=== PATIENT | female | born 1935 | race Caucasian/White ===

== ENCOUNTER 2017-03-01 12:05 | Observation (INO) | payer MEDICARE ==
[2017-03-01] MEDS ORDERED: SODIUM CHLORIDE 0.9% 1,000 ML IV SCH (14:15)
[2017-03-01 15:33] LABS: Basophils % (A) 2 %; CH 31.5; CHCM 32.4; Eosinophils % (A) 2 %; HCT 45.8 % (34.0-46.0); HDW 2.15; Luc % (Auto) 4; Lymphocytes % (A) 28 %; MCH 32.1 pg (25.0-35.0); MCHC 32.7 g/dL (31.0-37.0); Mean Platelet Volume 6.4; Monocytes % (A) 6 %; Neutrophils # (A) 4.2 k/uL (1.3-7.7); Neutrophils % (A) 58 %; RBC 4.67 m/uL (3.80-5.40); RDW 14.6 % (11.5-15.5); WBC 7.1 k/uL (3.8-10.6); WBC (Perox) 7.03
[2017-03-01 15:34] LABS: Basophils # (A) 0.1 k/uL (0-0.2); Eosinophils # (A) 0.2 k/uL (0-0.7); Luc # (Auto) 0.28; Monocytes # (A) 0.4 k/uL (0-1.0)
[2017-03-01 15:46] LABS: Calcium 9.7 mg/dL (8.4-10.2); Potassium 3.4 mmol/L (3.5-5.1); Total Bilirubin 0.9 mg/dL (0.2-1.3); Total Protein 7.4 g/dL (6.3-8.2)
[2017-03-01] MEDS ORDERED: POTASSIUM CHLORIDE ER 10 MEQ TAB.ER.PRT PO STA (17:12)
[2017-03-01] MEDS: FAMOTIDINE 20 MG TAB PO SCH (19:46)
--- NOTE | 2017-03-01 21:27 | CONS ---
DATE OF CONSULTATION: Mrs. Santana is an 81-year-old female with known history of chronic tobacco use, history of hypertension, who presented with a few weeks of not feeling well. She is feeling unsteady with some dizziness. She denies any palpitation. She was noted to be bradycardic at Dr. Arce's office and was sent to the hospital. She denies any change in her breathing. She denies any chest pain or palpitation. No syncope. She has no PND or no orthopnea. She has some peripheral edema in the left lower extremity that is chronic. Her coronary risk factors are remarkable for hypertension which she had for a while, history of chronic tobacco use. No documented hyperlipidemia. She has no prior cardiac history or recent cardiac work-up. Her medications at home include: 1. Norvasc 5 mg daily. 2. Lisinopril 20 mg daily. 3. Levothyroxine 0.075 mg daily. 4. Chlorthalidone 50 mg daily. 5. Atenolol 25 mg daily. REVIEW OF SYSTEMS: RESPIRATORY SYSTEM: She has no recent wheezing. No cough. GI system: No nausea. No vomiting. No GI bleeding. system: No dysuria or hematuria. Nervous system: No history of stroke or seizure. PHYSICAL EXAMINATION: She is an 81-year-old female, alert, oriented in no apparent distress. Blood pressure 129/60 with a heart rate in the 40s. HEAD: Normocephalic. EYES: Sclerae anicteric. NECK: Good upstroke. No bruit. No jugular venous distention. LUNGS: Clear to auscultation. HEART: Regular rate and rhythm. S1, S2, no S3, with systolic murmur at the base. No diastolic murmur. No rub. ABDOMEN: Soft, nontender, positive bowel sounds. No organomegaly. EXTREMITIES: +1 edema on the left side, +2 distal pulses. Lab data revealed a potassium 3.4. BUN and creatinine 27 and 1.16. Troponin less than 0.012. Hemoglobin of 15. EKG revealed a sinus mechanism with a rate of 47, first-degree AV block with a right bundle branch block. IMPRESSION: 1. Symptoms of unsteadiness could be related to the bradycardia, although no significant pauses are noted so far. Patient has a right bundle branch block and a first-degree AV block. 2. History of hypertension. 3. Abnormal renal function of unclear duration. 4. Chronic tobacco use. RECOMMENDATIONS: I will hold her beta priscila and decrease her diuretics at this time. Will obtain echocardiogram with Doppler. Replace her potassium. Depending on the results of her testing, further recommendations will be made. Thank you for this consult. We will follow with you.
[2017-03-02 05:03] LABS: Calcium 9.3 mg/dL (8.4-10.2); Potassium 3.8 mmol/L (3.5-5.1)
[2017-03-02] MEDS ORDERED: LEVOTHYROXINE 75 MCG TAB PO SCH (06:30)
--- NOTE | 2017-03-02 07:55 | ECHOF ---
Referral Reason:Bradycardic MEASUREMENTS -------- HEIGHT: 157.5 cm WEIGHT: 47.6 kg BP: 121/57 RVIDd: 3.0 cm (< 3.3) IVSd: 0.9 cm (0.6 - 1.1) LVIDd: 4.1 cm (3.9 - 5.3) LVPWd: 1.1 cm (0.6 - 1.1) IVSs: 1.5 cm LVIDs: 2.5 cm LVPWs: 1.7 cm LA Diam: 3.1 cm (2.7 - 3.8) LAESV Index (A-L): 21.00 ml/m Ao Diam: 3.0 cm (2.0 - 3.7) AV Cusp: 2.1 cm (1.5 - 2.6) MV EXCURSION: 11.280 mm (> 18.000) MV EF SLOPE: 42 mm/s (70 - 150) EPSS: 0.6 cm MV E Franki: 0.76 m/s MV DecT: 244 ms MV A Franki: 0.64 m/s MV E/A Ratio: 1.18 AR PHT: 541 ms RAP: 5.00 mmHg RVSP: 29.84 mmHg FINDINGS -------- Resting bradycardia (HR<60bpm). This was a technically good study. The left ventricular size is normal. Left ventricular wall thickness is normal. Overall left ventricular systolic function is normal with, an EF between 60 - 65 %. The right ventricle is normal in size and function. Normal LA size by volume 22+/-6 ml/m2. The right atrium is normal in size. Aortic valve is trileaflet and is mildly thickened. There is mild aortic regurgitation. Mild mitral annular calcification present. There is trace to mild mitral regurgitation. Mild tricuspid regurgitation present. Right ventricular systolic pressure is normal at < 35 mmHg. Trace/mild (physiologic) pulmonic regurgitation. The aortic root size is normal. The inferior vena cava is mildly dilated. The pericardium is normal. CONCLUSIONS -------- 1. Resting bradycardia (HR<60bpm). 2. There is mild aortic regurgitation. 3. Mild mitral annular calcification present. 4. There is trace to mild mitral regurgitation. 5. Mild tricuspid regurgitation present. 6. Right ventricular systolic pressure is normal at < 35 mmHg. 7. Trace/mild (physiologic) pulmonic regurgitation. 8. The aortic root size is normal. 9. The inferior vena cava is mildly dilated. 10. The pericardium is normal. 11. This was a technically good study. 12. The left ventricular size is normal. 13. Left ventricular wall thickness is normal. 14. Overall left ventricular systolic function is normal with, an EF between 60 - 65 %. 15. The right ventricle is normal in size and function. 16. Normal LA size by volume 22+/-6 ml/m2. 17. The right atrium is normal in size. 18. Aortic valve is trileaflet and is mildly thickened. [employer]LLAR [employer]ER OPERATOR: Adina Saavedra RDCS
[2017-03-02 08:17] VITALS: RESP 16
[2017-03-02] MEDS ORDERED: CHLORTHALIDONE 25 MG TAB PO SCH ×2 (09:00)
[2017-03-02] MEDS ORDERED: amLODIPine 5 MG TAB PO SCH (09:00)
[2017-03-02] MEDS ORDERED: LISINOPRIL 20 MG TAB PO SCH (09:00)
[2017-03-02] MEDS: FAMOTIDINE 20 MG TAB PO SCH (09:26)
--- NOTE | 2017-03-02 11:43 | PN ---
Mrs. Santana is an 81-year-old female who presented with symptoms of dizziness and was noted to have bradycardia. She is feeling much better this morning. Her breathing is better. She is denying any chest pain. She is ambulating without difficulty. She denies any dizziness, palpitation or syncope. Her beta priscila was held yesterday and she continues to be at this time on amlodipine 5 mg daily, chlorthalidone 25 mg daily, lisinopril 20 mg daily. PHYSICAL EXAMINATION: Blood pressure 140/60 with the heart rate in the 50s. Her heart rate is starting to come up. LUNGS: Clear. HEART: Regular rate and rhythm. S1, S2, no S3, no rub. ABDOMEN: Soft, nontender. EXTREMITIES: No edema. Lab data revealed a potassium 3.8. BUN and creatinine 22 and 1.1. Her troponin less than 0.012. Her TSH is normal. Her left ventricular systolic function by echocardiography was preserved. IMPRESSION: 1. Symptoms of dizziness. No clear evidence to suggest significant cardiac abnormality. The patient had sinus bradycardia could be exacerbated by the beta priscila, it is starting to be improve. 2. Hypertension. 3. History of smoking. RECOMMENDATIONS: From the cardiac standpoint, she should be able to be discharged home today and followed as an outpatient.
[2017-03-02 12:01] VITALS: BP 146/65; PULSE 48; TEMP 98.4
--- NOTE | 2017-04-20 10:38 | HP ---
CHIEF COMPLAINT: 81-year-old white female admitted to the hospital with dizziness, possible TIA and significant bradycardia. She has been feeling weak , dizzy and lightheaded with ambulation. She has history of end stage COPD. She is a chronic nicotine addiction person. She has hypertension and dyslipidemia. She has hypothyroidism. MEDICATIONS: 1. Atenolol 25 mg daily. 2. Norvasc 5 mg daily. 3. Lisinopril 20 mg daily. 4. Levothyroxine 75 mcg daily. 5. ( ) 50 mg daily. REVIEW OF SYSTEMS; 14 point review of system negative except for as mentioned in the HPI. PHYSICAL EXAM: 81-year-old white female who is thin, cachectic. Blood pressure is 120s/60s, heart rate in the 40s. HEENT: Head normocephalic, atraumatic. No scleral icterus. CARDIOVASCULAR: S1/S2. Minimum murmurs. LUNGS: Show wheeze x4, poor air flow. NECK: No JVD. ABDOMEN: Soft, nontender. EXTREMITIES: Show 1+ pedal edema bilaterally. 2+ dorsalis pedis, posterior tibial pulse. BUN 27, creatinine 1.16. Hemoglobin 15. EKG shows first degree heart block. ASSESSMENT: 1. Bradycardia. 2. Rule out transient ischemic attack due to altered mental status and dizziness. 3. Hypertension. 4. Acute on chronic renal insufficiency. 5. Chronic nicotine addiction. Cardiology will be consulted for the significant bradycardia and dizziness. MTDD
== END 2017-03-02 12:20 | disposition home or self-care (01) ==
LOC: 3OBS 13:48
PROVIDERS: ADMIT Family Medicine; ATTEND Family Medicine
DX: R42 Dizziness and giddiness (principal); R00.1 Bradycardia, unspecified; I10 Essential (primary) hypertension; I45.10 Unspecified right bundle-branch block; I44.0 Atrioventricular block, first degree; R60.0 Localized edema; Z79.899 Other long term (current) drug therapy; Z72.0 Tobacco use
CPT/HCPCS: 93306; 80053; 80048; 84443; 83735; 84484 ×2; 85025; G0378 ×2; G0379

== ENCOUNTER → 2017-12-25 | Outpatient (CLI) | payer MEDICARE ==
--- NOTE | 2017-12-25 10:17 | XR ---
Right wrist HISTORY: Trauma and pain 4 views of the right wrist Bone mineralization, joint spaces and alignment are maintained. IMPRESSION: No fracture or dislocation is evident.
--- NOTE | 2017-12-25 10:20 | XR ---
Facial bones HISTORY: Trauma and pain 4 views of the facial bones Bone mineralization is maintained. No opacification noted of the paranasal sinuses to suggest acute h emorrhage. Question some soft tissue swelling along the nasal bones. No evident displaced fracture, d ifficult to exclude nondisplaced fracture of the nasal bone. Orbits appear intact. Arthropathy noted in the cervical spine. IMPRESSION: Correlate for point tenderness nasal bone. No evident displaced fracture.
== END | disposition home or self-care (01) ==
LOC: RADXRMAIN 09:20
PROVIDERS: ATTEND Family Medicine
DX: T79.9XXA Unspecified early complication of trauma, initial encounter (principal)
CPT/HCPCS: 70150

== ENCOUNTER 2019-09-08 11:38 | Observation (INO) | payer MEDICARE ==
[2019-09-08] MEDS ORDERED: ONDANSETRON 4 MG/2 ML VIAL IVP STA (12:00)
[2019-09-08] MEDS ORDERED: MORPHINE SULFATE 2 MG/ML SYRINGE IVP STA (12:00)
[2019-09-08] MEDS ORDERED: SODIUM CHLORIDE 0.9% 1,000 ML IV STA ×2 (12:00)
--- NOTE | 2019-09-08 12:22 | ED ---
Abdominal Pain HPI - General Chief Complaint: Abdominal Pain Stated Complaint: right side abdominal pain Time Seen by Provider: 09/08/19 11:53 Source: patient, RN notes reviewed, old records reviewed Mode of arrival: wheelchair Limitations: no limitations - History of Present Illness Initial Comments: 84-year-old female presents today for evaluation for concern for right-sided abdominal pain nausea and vomiting discomfort for the past 3-4 days. Patient states that her pain seems to be cramping in nature. It started in umbilicus and radiates towards her lower quadrants. She also states she's been having polyuria. Patient is a current every day smoker. She denies any back pain. She denies any nausea or vomiting. She did have a normal bowel movement today. - Related Data Home Medications Medication Instructions Recorded Confirmed Atenolol [Tenormin] 12.5 mg PO BID 03/01/17 03/01/17 Chlorthalidone 50 mg PO DAILY 03/01/17 03/01/17 Levothyroxine Sodium [Synthroid] 75 mcg PO DAILY 03/01/17 03/01/17 Lisinopril [Zestril] 20 mg PO DAILY 03/01/17 03/01/17 amLODIPine [Norvasc] 5 mg PO DAILY 03/01/17 03/01/17 Allergies Allergy/AdvReac Type Severity Reaction Status Date / Time No Known Allergies Allergy Verified 03/01/17 14:23 Review of Systems ROS Statement: Those systems with pertinent positive or pertinent negative responses have been documented in the HPI. ROS Other: All systems not noted in ROS Statement are negative. Past Medical History Past Medical History: Eye Disorder, Hypertension, Thyroid Disorder Additional Past Medical History / Comment(s): Bilateral glaucoma, lower leg edema at times, hypothyroid. History of Any Multi-Drug Resistant Organisms: None Reported Past Surgical History: Hernia Repair Additional Past Surgical History / Comment(s): R inguinal hernia repair, bilateral cataract removals Past Anesthesia/Blood Transfusion Reactions: No Reported Reaction Past Psychological History: No Psychological Hx Reported Smoking Status: Current every day smoker Past Alcohol Use History: None Reported Past Drug Use History: None Reported - Past Family History Father Family Medical History: No Reported History Additional Family Medical History / Comment(s): Father was healthy and at the age of 94 yrs. Mother Family Medical History: No Reported History Additional Family Medical History / Comment(s): Mother was healthy and at the age of 95 yrs. General Exam - General Exam Comments Initial Comments: 84-year-old female. Alert and oriented. Limitations: no limitations Head exam: Present: atraumatic, normocephalic, normal inspection Eye exam: Present: normal appearance, PERRL, EOMI. Absent: scleral icterus, c onjunctival injection, periorbital swelling ENT exam: Present: normal exam, mucous membranes moist Neck exam: Present: normal inspection. Absent: tenderness, meningismus, lymphadenopathy Respiratory exam: Present: normal lung sounds bilaterally. Absent: respiratory distress, wheezes, rales, rhonchi, stridor Cardiovascular Exam: Present: regular rate, normal rhythm, normal heart sounds. Absent: systolic murmur, diastolic murmur, rubs, gallop, clicks GI/Abdominal exam: Present: soft, normal bowel sounds. Absent: distended, tenderness, guarding, rebound, rigid Extremities exam: Present: normal inspection, full ROM, normal capillary refill. Absent: tenderness, pedal edema, joint swelling, calf tenderness Back exam: Present: normal inspection Neurological exam: Present: alert, oriented X3, CN II-XII intact Course Vital Signs 09/08/19 11:44 Temperature 97.9 F Pulse Rate 88 Respiratory 17 Rate Blood Pressure 157/87 O2 Sat by Pulse 94 L Oximetry Medical Decision Making - Medical Decision Making 84-year-old female presents emergency department today for evaluation for complaints of right-sided abdominal pain, periumbilical pain radiates towards aside the past 3 days. Patient has no fever at this time. No nausea or vomiting or diarrhea. She does have some tenderness noted on physical exam. Patient does have leukocytosis, with white blood cell count of 15,000. Urinalysis is negative for infection. Kidney and liver function tests are unremarkable. Patient's underwent computed tomography scan which does show some inflammatory changes over the low-lying cecum. - Lab Data Result diagrams: 09/08/19 12:20 09/08/19 12:20 Lab Results 09/08/19 09/08/19 09/08/19 Range/Units 12:20 12:20 12:20 WBC 15.9 H (3.8-10.6) k/uL RBC 4.42 (3.80-5.40) m/uL Hgb 14.1 (11.4-16.0) gm/dL Hct 41.3 (34.0-46.0) % MCV 93.2 (80.0-100.0) fL MCH 31.8 (25.0-35.0) pg MCHC 34.1 (31.0-37.0) g/dL RDW 14.0 (11.5-15.5) % Plt Count 187 (150-450) k/uL Neutrophils % 89 % Lymphocytes % 6 % Monocytes % 4 % Eosinophils % 1 % Basophils % 0 % Neutrophils # 14.0 H (1.3-7.7) k/uL Lymphocytes # 0.9 L (1.0-4.8) k/uL Monocytes # 0.6 (0-1.0) k/uL Eosinophils # 0.1 (0-0.7) k/uL Basophils # 0.0 (0-0.2) k/uL PT 9.9 (9.0-12.0) sec INR 0.9 (<1.2) APTT 25.8 (22.0-30.0) sec Sodium 138 (137-145) mmol/L Potassium 3.9 (3.5-5.1) mmol/L Chloride 104 (98-107) mmol/L Carbon Dioxide 24 (22-30) mmol/L Anion Gap 10 mmol/L BUN 22 H (7-17) mg/dL Creatinine 1.02 (0.52-1.04) mg/dL Est GFR (CKD-EPI)AfAm 58 (>60 ml/min/1.73 sqM) Est GFR (CKD-EPI)NonAf 50 (>60 ml/min/1.73 sqM) Glucose 137 H (74-99) mg/dL Calcium 9.4 (8.4-10.2) mg/dL Total Bilirubin 1.3 (0.2-1.3) mg/dL AST 28 (14-36) U/L ALT 11 (4-34) U/L Alkaline Phosphatase 108 (38-126) U/L Total Protein 7.2 (6.3-8.2) g/dL Albumin 4.3 (3.5-5.0) g/dL Amylase 48 (30-110) U/L Lipase 30 (23-300) U/L Urine Color Urine Appearance (Clear) Urine pH (5.0-8.0) Ur Specific [place] (1.001-1.035) Urine Protein (Negative) Urine Glucose (UA) (Negative) Urine Ketones (Negative) Urine Blood (Negative) Urine Nitrite (Negative) Urine Bilirubin (Negative) Urine Urobilinogen (<2.0) mg/dL Ur Leukocyte Esterase (Negative) Urine RBC (0-5) /hpf Urine WBC (0-5) /hpf Ur Squamous Epith Cells (0-4) /hpf Hyaline Casts (0-2) /lpf Urine Mucus (None) /hpf 09/08/19 Range/Units 13:30 WBC (3.8-10.6) k/uL RBC (3.80-5.40) m/uL Hgb (11.4-16.0) gm/dL Hct (34.0-46.0) % MCV (80.0-100.0) fL MCH (25.0-35.0) pg MCHC (31.0-37.0) g/dL RDW (11.5-15.5) % Plt Count (150-450) k/uL Neutrophils % % Lymphocytes % % Monocytes % % Eosinophils % % Basophils % % Neutrophils # (1.3-7.7) k/uL Lymphocytes # (1.0-4.8) k/uL Monocytes # (0-1.0) k/uL Eosinophils # (0-0.7) k/uL Basophils # (0-0.2) k/uL PT (9.0-12.0) sec INR (<1.2) APTT (22.0-30.0) sec Sodium (137-145) mmol/L Potassium (3.5-5.1) mmol/L Chloride (98-107) mmol/L Carbon Dioxide (22-30) mmol/L Anion Gap mmol/L BUN (7-17) mg/dL Creatinine (0.52-1.04) mg/dL Est GFR (CKD-EPI)AfAm (>60 ml/min/1.73 sqM) Est GFR (CKD-EPI)NonAf (>60 ml/min/1.73 sqM) Glucose (74-99) mg/dL Calcium (8.4-10.2) mg/dL Total Bilirubin (0.2-1.3) mg/dL AST (14-36) U/L ALT (4-34) U/L Alkaline Phosphatase (38-126) U/L Total Protein (6.3-8.2) g/dL Albumin (3.5-5.0) g/dL Amylase (30-110) U/L Lipase (23-300) U/L Urine Color Yellow Urine Appearance Clear (Clear) Urine pH 6.5 (5.0-8.0) Ur Specific [place] 1.038 H (1.001-1.035) Urine Protein 1+ H (Negative) Urine Glucose (UA) Negative (Negative) Urine Ketones 1+ H (Negative) Urine Blood Trace H (Negative) Urine Nitrite Negative (Negative) Urine Bilirubin Negative (Negative) Urine Urobilinogen <2.0 (<2.0) mg/dL Ur Leukocyte Esterase Negative (Negative) Urine RBC 3 (0-5) /hpf Urine WBC 2 (0-5) /hpf Ur Squamous Epith Cells <1 (0-4) /hpf Hyaline Casts 3 H (0-2) /lpf Urine Mucus Rare H (None) /hpf - Radiology Data Radiology results: report reviewed Inflammatory changes over the right upper pelvis is felt to be centered at site of low-lying cecum and distal ileal loops. Cannot now visualize normal- appearing appendix which was visible on prior CT thus acute appendicitis needs to be considered as possible etiology. Disposition Clinical Impression: Appendicitis Disposition: ADMITTED IP TO THIS [facility] Condition: Good Is patient prescribed a controlled substance at d/c from ED?: No Referrals: Anant Arce MD [Primary Care Provider] - 1-2 days Time of Disposition: 14:15
[2019-09-08 12:41] LABS: Basophils % (A) 0 %; Eosinophils # (A) 0.1 k/uL (0-0.7); Eosinophils % (A) 1 %; HCT 41.3 % (34.0-46.0); HGB 14.1 gm/dL (11.4-16.0); Lymphocytes # (A) 0.9 k/uL (1.0-4.8); Lymphocytes % (A) 6 %; MCH 31.8 pg (25.0-35.0); MCHC 34.1 g/dL (31.0-37.0); MCV 93.2 fL (80.0-100.0); Mean Platelet Volume 7.1; Monocytes # (A) 0.6 k/uL (0-1.0); Monocytes % (A) 4 %; Neutrophils % (A) 89 %; Platelet Count 187 k/uL (150-450); RBC 4.42 m/uL (3.80-5.40); WBC 15.9 k/uL (3.8-10.6)
[2019-09-08 12:49] LABS: Albumin 4.3 g/dL (3.5-5.0); Calcium 9.4 mg/dL (8.4-10.2); INR 0.9 (<1.2); Partial Thromboplastin Time 25.8 sec (22.0-30.0); Potassium 3.9 mmol/L (3.5-5.1); Prothrombin Time 9.9 sec (9.0-12.0); Total Bilirubin 1.3 mg/dL (0.2-1.3); Total Protein 7.2 g/dL (6.3-8.2)
--- NOTE | 2019-09-08 13:44 | CT ---
EXAMINATION TYPE: CT abdomen pelvis w con DATE OF EXAM: 09/08/2019 HISTORY: Abdominal pain in particular right lower quadrant pain with history of right inguinal hernia CT DLP: 522.7mGycm Automated Exposure Control for Dose Reduction was Utilized. CONTRAST: CT scan of the abdomen and pelvis is performed with IV Contrast, patient injected with 80 mL of Isovu e 300. COMPARISON: CT abdomen and pelvis July 10, 2012 FINDINGS: LUNG BASES: Stable mild left basilar linear scarring. Stable mild cardiomegaly with coronary calcific ation distal RCA distribution. LIVER/GB: No significant abnormality is appreciated. PANCREAS: No significant abnormality is seen. 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 ADRENALS: No significant abnormality is seen. KIDNEYS: Redemonstration of anterior axis to left kidney. Symmetric cortical medullary uptake and exc retion without hydronephrosis seen bilaterally. No luminal calculus in the bladder BOWEL: Evaluation bowel suboptimal study due to lack of enteric contrast. Stomach poorly distended an d thus suboptimally evaluated. No suspicious small bowel dilatation. Prominence of fecal material in the rectum. Severe sigmoid colonic diverticulosis in the redundant sigmoid colon in the pelvis. Some prominence of the cecum right upper pelvis. There is mild ill-defined fluid and fat stranding centere d upper pelvis just right of midline with some mildly thickened ileal loop is noted at this level. Normal appearing appendix not well identified on this CT. Prior CT showed a contrast-filled appendix extending inferior from the cecum which was slightly low-lying. Terminal ileum. Present coronal image 30 and axial image 46 suggestion of a blind slightly dilated tubular shaped structure coronal image 22 inferior to cecum suspicious for focal dilated and wall thickened appendix. This however is fairly short in length from normal appendix. No free air. No well-formed fluid collection or abscess. UTERUS/ADNEXA: Slightly retroflexed uterus. LYMPH NODES: No greater than 1cm abdominal or pelvic lymph nodes are appreciated. OSSEOUS STRUCTURES: Demineralization with slight grade 1 anterolisthesis L4 on L5 moderate narrowing of both hip joints. Mild chronic compression fracture T12 level. Osseous structures are demineralized . OTHER: No significant additional abnormality is seen. IMPRESSION: 1. Inflammatory change right upper pelvis is felt present centered at site of low lying cecum and dis germania ileal loops. I cannot now visualized normal appearing appendix which I could see on prior CT and thus acute appendicitis needs to be considered as possible etiology. Case discussed with ordering emergency care physician corporate administrative assistant via telephone at time of dictation.
[2019-09-08 13:50] LABS: Appearance,Urine Clear (Clear); Bilirubin,Urine Negative (Negative); Blood,Urine Trace (Negative); Color,Urine Yellow; Glucose,Urine (UA) Negative (Negative); Hyaline Casts,Urine 3 /lpf (0-2); Ketones,Urine 1+ (Negative); Leukocyte Esterase,Urine Negative (Negative); Mucus,Urine Rare /hpf; Nitrite,Urine Negative (Negative); PH, Urine 6.5 (5.0-8.0); Protein,Urine 1+ (Negative); RBC,Urine 3 /hpf (0-5); Specific Gravity,Urine 1.038 (1.001-1.035); Squamous Epithelial Cell,Urine <1 /hpf (0-4); Urobilinogen,Urine <2.0 mg/dL (<2.0); WBC,Urine 2 /hpf (0-5)
[2019-09-08] MEDS ORDERED: PIPERACILLIN-TAZOBACTAM 3.375 GM in SODIUM CHLORIDE 0.9% 100 ML IVPB STA (14:16)
[2019-09-08] MEDS ORDERED: IBUPROFEN 400 MG TAB PO PRN (14:16)
[2019-09-08] MEDS ORDERED: KETOROLAC 30 MG/ML 1 ML VIAL IVP PRN (14:16)
[2019-09-08] MEDS ORDERED: MORPHINE SULFATE 4 MG/ML SYRINGE IV PRN (14:16)
[2019-09-08] MEDS ORDERED: NALOXONE 0.4 MG/ML 1 ML VIAL IV PRN (14:16)
[2019-09-08] MEDS ORDERED: ACETAMINOPHEN TAB 325 MG TAB PO PRN (14:16)
[2019-09-08] MEDS ORDERED: ONDANSETRON 4 MG/2 ML VIAL IVP PRN (14:16)
--- NOTE | 2019-09-08 14:52 | ED ---
Medical Decision Making - Lab Data Result diagrams: 09/08/19 12:20 09/08/19 12:20 Lab Results 09/08/19 09/08/19 09/08/19 Range/Units 12:20 12:20 12:20 WBC 15.9 H (3.8-10.6) k/uL RBC 4.42 (3.80-5.40) m/uL Hgb 14.1 (11.4-16.0) gm/dL Hct 41.3 (34.0-46.0) % MCV 93.2 (80.0-100.0) fL MCH 31.8 (25.0-35.0) pg MCHC 34.1 (31.0-37.0) g/dL RDW 14.0 (11.5-15.5) % Plt Count 187 (150-450) k/uL Neutrophils % 89 % Lymphocytes % 6 % Monocytes % 4 % Eosinophils % 1 % Basophils % 0 % Neutrophils # 14.0 H (1.3-7.7) k/uL Lymphocytes # 0.9 L (1.0-4.8) k/uL Monocytes # 0.6 (0-1.0) k/uL Eosinophils # 0.1 (0-0.7) k/uL Basophils # 0.0 (0-0.2) k/uL PT 9.9 (9.0-12.0) sec INR 0.9 (<1.2) APTT 25.8 (22.0-30.0) sec Sodium 138 (137-145) mmol/L Potassium 3.9 (3.5-5.1) mmol/L Chloride 104 (98-107) mmol/L Carbon Dioxide 24 (22-30) mmol/L Anion Gap 10 mmol/L BUN 22 H (7-17) mg/dL Creatinine 1.02 (0.52-1.04) mg/dL Est GFR (CKD-EPI)AfAm 58 (>60 ml/min/1.73 sqM) Est GFR (CKD-EPI)NonAf 50 (>60 ml/min/1.73 sqM) Glucose 137 H (74-99) mg/dL Calcium 9.4 (8.4-10.2) mg/dL Total Bilirubin 1.3 (0.2-1.3) mg/dL AST 28 (14-36) U/L ALT 11 (4-34) U/L Alkaline Phosphatase 108 (38-126) U/L Total Protein 7.2 (6.3-8.2) g/dL Albumin 4.3 (3.5-5.0) g/dL Amylase 48 (30-110) U/L Lipase 30 (23-300) U/L Urine Color Urine Appearance (Clear) Urine pH (5.0-8.0) Ur Specific [place] (1.001-1.035) Urine Protein (Negative) Urine Glucose (UA) (Negative) Urine Ketones (Negative) Urine Blood (Negative) Urine Nitrite (Negative) Urine Bilirubin (Negative) Urine Urobilinogen (<2.0) mg/dL Ur Leukocyte Esterase (Negative) Urine RBC (0-5) /hpf Urine WBC (0-5) /hpf Ur Squamous Epith Cells (0-4) /hpf Hyaline Casts (0-2) /lpf Urine Mucus (None) /hpf 09/08/19 Range/Units 13:30 WBC (3.8-10.6) k/uL RBC (3.80-5.40) m/uL Hgb (11.4-16.0) gm/dL Hct (34.0-46.0) % MCV (80.0-100.0) fL MCH (25.0-35.0) pg MCHC (31.0-37.0) g/dL RDW (11.5-15.5) % Plt Count (150-450) k/uL Neutrophils % % Lymphocytes % % Monocytes % % Eosinophils % % Basophils % % Neutrophils # (1.3-7.7) k/uL Lymphocytes # (1.0-4.8) k/uL Monocytes # (0-1.0) k/uL Eosinophils # (0-0.7) k/uL Basophils # (0-0.2) k/uL PT (9.0-12.0) sec INR (<1.2) APTT (22.0-30.0) sec Sodium (137-145) mmol/L Potassium (3.5-5.1) mmol/L Chloride (98-107) mmol/L Carbon Dioxide (22-30) mmol/L Anion Gap mmol/L BUN (7-17) mg/dL Creatinine (0.52-1.04) mg/dL Est GFR (CKD-EPI)AfAm (>60 ml/min/1.73 sqM) Est GFR (CKD-EPI)NonAf (>60 ml/min/1.73 sqM) Glucose (74-99) mg/dL Calcium (8.4-10.2) mg/dL Total Bilirubin (0.2-1.3) mg/dL AST (14-36) U/L ALT (4-34) U/L Alkaline Phosphatase (38-126) U/L Total Protein (6.3-8.2) g/dL Albumin (3.5-5.0) g/dL Amylase (30-110) U/L Lipase (23-300) U/L Urine Color Yellow Urine Appearance Clear (Clear) Urine pH 6.5 (5.0-8.0) Ur Specific [place] 1.038 H (1.001-1.035) Urine Protein 1+ H (Negative) Urine Glucose (UA) Negative (Negative) Urine Ketones 1+ H (Negative) Urine Blood Trace H (Negative) Urine Nitrite Negative (Negative) Urine Bilirubin Negative (Negative) Urine Urobilinogen <2.0 (<2.0) mg/dL Ur Leukocyte Esterase Negative (Negative) Urine RBC 3 (0-5) /hpf Urine WBC 2 (0-5) /hpf Ur Squamous Epith Cells <1 (0-4) /hpf Hyaline Casts 3 H (0-2) /lpf Urine Mucus Rare H (None) /hpf 09/08/19 14:51 EKG shows normal sinus rhythm first-degree AV block. Troponin branch block. T- wave abnormality considering. Ischemia. Ventricular rate of 86 bpm. Intervals to 80 ms. QRS duration is 152 ms. QT QTc is 404/4/32. Disposition Clinical Impression: Appendicitis Disposition: ADMITTED IP TO THIS HOSP Condition: Good
[2019-09-08] MEDS ORDERED: BUPIVACAINE (PF) 0.25% 30 ML VIAL SQ ONE ×3 (14:54→15:44)
[2019-09-08] MEDS: SODIUM CHLORIDE 0.9% 1,000 ML IV SCH (14:56)
--- NOTE | 2019-09-08 14:57 | P.GSHP ---
History of Present Illness H&P Date: 09/08/19 This is an 84-year-old female that presented to the emergency department with complaints of abdominal pain. The patient states that the pain began 3 days ago and she states that it has progressively worsened over that time. She states that the pain began around her umbilical area and then migrated towards her right lower quadrant. She states that she has pain with any ambulation or significant movement. She denies any nausea or vomiting episodes. She denies any change in bowel function. She denies any fevers, chills, chest pain or shortness of breath. CT of the abdomen and pelvis was performed in the emergency department and there is concern of inflammatory changes in the right lower quadrant with concern of appendicitis. The patient denies any previous abdominal surgical history. she has no additional complaints at this time. - Review of Systems All systems: negative Past Medical History Past Medical History: Eye Disorder, Hypertension, Thyroid Disorder Additional Past Medical History / Comment(s): Bilateral glaucoma, lower leg edema at times, hypothyroid. History of Any Multi-Drug Resistant Organisms: None Reported Past Surgical History: Hernia Repair Additional Past Surgical History / Comment(s): R inguinal hernia repair, bilateral cataract removals Past Anesthesia/Blood Transfusion Reactions: No Reported Reaction Past Psychological History: No Psychological Hx Reported Smoking Status: Current every day smoker Past Alcohol Use History: None Reported Past Drug Use History: None Reported - Past Family History Father Family Medical History: No Reported History Additional Family Medical History / Comment(s): Father was healthy and at the age of 94 yrs. Mother Family Medical History: No Reported History Additional Family Medical History / Comment(s): Mother was healthy and at the age of 95 yrs. Medications and Allergies Home Medications Medication Instructions Recorded Confirmed Type Levothyroxine Sodium [Synthroid] 88 mcg PO DAILY 09/08/19 09/08/19 History Allergies Allergy/AdvReac Type Severity Reaction Status Date / Time No Known Allergies Allergy Verified 09/08/19 14:49 Surgical - Exam Osteopathic Statement: *. No significant issues noted on an osteopathic structural exam other than those noted in the History and Physical/Consult. Vital Signs Temp Pulse Resp BP Pulse Ox 97.9 F 88 17 157/87 94 L 09/08/19 11:44 09/08/19 11:44 09/08/19 11:44 09/08/19 11:44 09/08/19 11:44 - General well developed, well nourished - Eyes PERRL - ENT normal mucosa, no hearing loss - Neck trachea midline - Respiratory no difficulty with respiration - Abdomen soft, tender to palpation in right lower quadrant, nondistended, no rebound, no guarding - Psychiatric oriented to time, oriented to person, oriented to place Results - Labs 09/08/19 12:20 09/08/19 12:20 Abnormal Lab Results - Last 24 Hours (Table) 09/08/19 09/08/19 09/08/19 Range/Units 12:20 12:20 13:30 WBC 15.9 H (3.8-10.6) k/uL Neutrophils # 14.0 H (1.3-7.7) k/uL Lymphocytes # 0.9 L (1.0-4.8) k/uL BUN 22 H (7-17) mg/dL Glucose 137 H (74-99) mg/dL Ur Specific [place] 1.038 H (1.001-1.035) Urine Protein 1+ H (Negative) Urine Ketones 1+ H (Negative) Urine Blood Trace H (Negative) Hyaline Casts 3 H (0-2) /lpf Urine Mucus Rare H (None) /hpf Diabetes panel 09/08/19 Range/Units 12:20 Sodium 138 (137-145) mmol/L Potassium 3.9 (3.5-5.1) mmol/L Chloride 104 (98-107) mmol/L Carbon Dioxide 24 (22-30) mmol/L BUN 22 H (7-17) mg/dL Creatinine 1.02 (0.52-1.04) mg/dL Glucose 137 H (74-99) mg/dL Calcium 9.4 (8.4-10.2) mg/dL AST 28 (14-36) U/L ALT 11 (4-34) U/L Alkaline Phosphatase 108 (38-126) U/L Total Protein 7.2 (6.3-8.2) g/dL Albumin 4.3 (3.5-5.0) g/dL Calcium panel 09/08/19 Range/Units 12:20 Calcium 9.4 (8.4-10.2) mg/dL Albumin 4.3 (3.5-5.0) g/dL Pituitary panel 09/08/19 Range/Units 12:20 Sodium 138 (137-145) mmol/L Potassium 3.9 (3.5-5.1) mmol/L Chloride 104 (98-107) mmol/L Carbon Dioxide 24 (22-30) mmol/L BUN 22 H (7-17) mg/dL Creatinine 1.02 (0.52-1.04) mg/dL Glucose 137 H (74-99) mg/dL Calcium 9.4 (8.4-10.2) mg/dL Adrenal panel 09/08/19 Range/Units 12:20 Sodium 138 (137-145) mmol/L Potassium 3.9 (3.5-5.1) mmol/L Chloride 104 (98-107) mmol/L Carbon Dioxide 24 (22-30) mmol/L BUN 22 H (7-17) mg/dL Creatinine 1.02 (0.52-1.04) mg/dL Glucose 137 H (74-99) mg/dL Calcium 9.4 (8.4-10.2) mg/dL Total Bilirubin 1.3 (0.2-1.3) mg/dL AST 28 (14-36) U/L ALT 11 (4-34) U/L Alkaline Phosphatase 108 (38-126) U/L Total Protein 7.2 (6.3-8.2) g/dL Albumin 4.3 (3.5-5.0) g/dL Assessment and Plan (1) Appendicitis Narrative/Plan: 84-year-old female with likely acute appendicitis based on physical exam and CT findings - Begin antibiotics - Keep nothing by mouth - Begin DVT prophylaxis - Plan for OR for laparoscopic appendectomy, further recommendations after procedure Current Visit: Yes Status: Acute Code(s): K37 - UNSPECIFIED APPENDICITIS SNOMED Code(s): 32200530
[2019-09-08] MEDS ORDERED: SUCCINYLCHOLINE CHLORIDE 100 MG/5 ML SYR IV ONE (15:23)
[2019-09-08] MEDS ORDERED: ESMOLOL 100 MG/10 ML VIAL ONE (15:23)
[2019-09-08] MEDS ORDERED: NEOSTIGMINE 1 MG/ML 10 ML VIAL ONE (15:23)
[2019-09-08] MEDS ORDERED: LIDOCAINE 1% INJ 10MG/ML (20 ML MDV) ONE (15:23)
[2019-09-08] MEDS ORDERED: GLYCOPYRROLATE 0.2 MG/ML 2 ML VIAL ONE (15:23)
[2019-09-08] MEDS ORDERED: PROPOFOL 10 MG/ML 20 ML VIAL IV ONE (15:23)
[2019-09-08] MEDS ORDERED: MIDAZOLAM 2 MG/2 ML VIAL ONE (15:23)
[2019-09-08] MEDS ORDERED: ROCURONIUM BROMIDE 10 MG/ML 10 ML VIAL IV ONE (15:23)
[2019-09-08] MEDS ORDERED: fentaNYL (PF) 50 MCG/ML 2 ML AMP ONE (15:23)
[2019-09-08] MEDS ORDERED: IV FLUID CONTINUATION 900 ML IV ONE (15:28)
--- NOTE | 2019-09-08 16:13 | P.OP ---
Date of Procedure: 09/08/19 Preoperative Diagnosis: acute appendicitis Postoperative Diagnosis: acute appendicitis Procedure(s) Performed: laparoscopic appendectomy Anesthesia: JEFFERSON Surgeon: Jerson Engel Pathology: other (appendix) Condition: stable Disposition: floor Indications for Procedure: 84-year-old female presented to the emergency department with complaints of right lower quadrant pain. On workup she was found to have acute appendicitis. Secondary to this, plan was made for laparoscopic appendectomy. Risks, benefits and alternatives to the procedure were provided to the patient prior to attending the operating suite. She did provide Her consent prior to attending the operating suite. Operative Findings: acute appendicitis with exudative changes on the appendix and in the periappendiceal area Description of Procedure: the patient was brought to the operating suite and placed in supine position on the operating table. Sedation was provided by anesthesia and the patient did undergo endotracheal intubation. The patient was then prepped and draped in r egular sterile fashion. A super umbilical incision was made dissection was carried to the fascia the fascia was incised. The abdomen was then entered with a 12 mm trocar and pneumoperitoneum was achieved. 2 additional 5 mm ports were placed. One was placed in the suprapubic location and one was placed in left lower quadrant. The patient was then placed in appropriate position. The cecum was examined and the appendix was clearly visualized. The appendix was noted to be inflamed and thickened. Exudative changes were noted along the appendix and around some of the terminal ileum area. The exudates were peeled away. The appendix was then elevated and the base of the appendix was clearly visualized. A window was created between the appendix and the mesoappendix. A LigaSure device was used to dissect the appendix from the mesoappendix. A stapler device was fired across the base of the appendix. Hemostasis was noted to be maintained. Irrigation was then used in the right lower quadrant. A OG drain was placed due to the purulence and exudative changes noted. Pneumoperitoneum was released. The fascia from the super umbilical incision site was closed with a [id number] 0 Vicryl suture. All skin incisions were closed with 4-0 Vicryl subcuticular suture. The OG drain was secured in place with a 2-0 silk suture. The patient was awakened in the operating suite and taken to post anesthesia care unit in stable condition.
[2019-09-08] MEDS ORDERED: HYDROmorphone 1 MG/ML 1 ML SYRINGE IVP ONE (16:55)
[2019-09-08] MEDS: HEPARIN SODIUM,PORCINE 5,000 UNIT/ML 1 ML VIAL SQ SCH ×3 (17:15→23:00)
[2019-09-08] MEDS ORDERED: hydrALAZINE HCL 20 MG/ML 1 ML VIAL IVP ONE (17:28)
--- NOTE | 2019-09-08 20:05 | CONS ---
CONSULTATION This is an 84-year-old white female admitted with acute right lower quadrant abdominal pain. I sent her to the hospital. She had a CT scan showing acute appendicitis with elevated white count of 15,000. She has a history of hypertension, hypothyroidism, COPD, nicotine addiction. She appears to be stable at this time. Her blood pressure has been high during surgery and after surgery I am going to start her on Norvasc 5 mg daily. Fourteen-point review of systems negative except for mentioned in the HPI. Home medicines as mentioned, levothyroxine. VITAL SIGNS: Blood pressure 180s to 160s over 80s diastolic. Respiratory rate 12 to 14. GI: Soft. She had right lower quadrant tenderness when I examined her in the emergency room and guarding. Status post surgery at this point. HEMATOLOGY: Negative Homans. MUSCULOSKELETAL: Range of motion full. ASSESSMENT: 1. Hypertension acceleration. 2. Status post acute appendicitis, unclear etiology, status post surgery. She is stable. Start her on Norvasc 5 mg daily. Continue levothyroxine. Follow up in next 24 to 48 hours for discharge. MMODL / IJN: [id number] /
[2019-09-08] MEDS: amLODIPine 5 MG TAB PO SCH (21:22)
[2019-09-08] MEDS: PIPERACILLIN-TAZOBACTAM 3.375 GM in SODIUM CHLORIDE 0.9% 100 ML IVPB SCH (22:54)
[2019-09-09] MEDS: LEVOTHYROXINE 88 MCG TAB PO SCH (05:43)
[2019-09-09 07:01] LABS: Basophils % (A) 0 %; Eosinophils % (A) 0 %; HCT 37.6 % (34.0-46.0); HGB 11.7 gm/dL (11.4-16.0); Lymphocytes # (A) 1.1 k/uL (1.0-4.8); Lymphocytes % (A) 10 %; MCH 30.3 pg (25.0-35.0); MCHC 31.1 g/dL (31.0-37.0); MCV 97.5 fL (80.0-100.0); Mean Platelet Volume 7.2; Monocytes # (A) 0.5 k/uL (0-1.0); Monocytes % (A) 5 %; Neutrophils # (A) 8.7 k/uL (1.3-7.7); Neutrophils % (A) 83 %; Platelet Count 136 k/uL (150-450); RBC 3.86 m/uL (3.80-5.40); RDW 14.1 % (11.5-15.5); WBC 10.5 k/uL (3.8-10.6)
[2019-09-09 07:21] LABS: Calcium 8.2 mg/dL (8.4-10.2); Potassium 3.5 mmol/L (3.5-5.1); Total Bilirubin 0.8 mg/dL (0.2-1.3); Total Protein 5.7 g/dL (6.3-8.2)
[2019-09-09] MEDS: HEPARIN SODIUM,PORCINE 5,000 UNIT/ML 1 ML VIAL SQ SCH ×2 (07:49→14:47)
[2019-09-09] MEDS: PIPERACILLIN-TAZOBACTAM 3.375 GM in SODIUM CHLORIDE 0.9% 100 ML IVPB SCH ×2 (07:50→14:47)
[2019-09-09] MEDS: amLODIPine 5 MG TAB PO SCH (07:50)
--- NOTE | 2019-09-09 08:48 | P.PN ---
Subjective Progress Note Date: 09/09/19 Patient seen and examined at bedside. States she is comfortable unless she is moving around. Denies nausea or vomiting. Tolerating clear liquid diet. OG drain in place with 30 mL of serosanguineous output overnight. Objective - Vital Signs Vital signs: Vital Signs Temp 98.4 F 09/09/19 07:25 Pulse 78 09/09/19 07:25 Resp 17 09/09/19 07:25 BP 160/65 09/09/19 07:25 Pulse Ox 95 09/09/19 07:25 Intake & Output 09/08/19 09/09/19 09/09/19 18:59 06:59 18:59 Intake Total 600 Output Total 5 330 Balance 595 -330 Weight 47.627 kg Intake: IV 600 Output: Drainage 30 Left Lower Abdomen 30 Urine 300 Estimated Blood Loss 5 Other: Voiding Method Bedside Commode # Voids 2 - Constitutional General appearance: Present: cooperative, no acute distress - Gastrointestinal Gastrointestinal Comment(s): Soft, appropriate tenderness, nondistended, no rebound, no guarding, incision sites are clean, dry and intact, OG drain in place with serous segment S output - Psychiatric Psychiatric: Present: A&O x's 3 - Labs CBC & Chem 7: 09/09/19 06:29 09/09/19 06:29 Labs: Abnormal Lab Results - Last 24 Hours (Table) 09/08/19 09/08/19 09/08/19 Range/Units 12:20 12:20 13:30 WBC 15.9 H (3.8-10.6) k/uL Plt Count (150-450) k/uL Neutrophils # 14.0 H (1.3-7.7) k/uL Lymphocytes # 0.9 L (1.0-4.8) k/uL Chloride (98-107) mmol/L BUN 22 H (7-17) mg/dL Glucose 137 H (74-99) mg/dL Calcium (8.4-10.2) mg/dL Total Protein (6.3-8.2) g/dL Albumin (3.5-5.0) g/dL Ur Specific [place] 1.038 H (1.001-1.035) Urine Protein 1+ H (Negative) Urine Ketones 1+ H (Negative) Urine Blood Trace H (Negative) Hyaline Casts 3 H (0-2) /lpf Urine Mucus Rare H (None) /hpf 09/09/19 09/09/19 Range/Units 06:29 06:29 WBC (3.8-10.6) k/uL Plt Count 136 L (150-450) k/uL Neutrophils # 8.7 H (1.3-7.7) k/uL Lymphocytes # (1.0-4.8) k/uL Chloride 110 H (98-107) mmol/L BUN 19 H (7-17) mg/dL Glucose (74-99) mg/dL Calcium 8.2 L (8.4-10.2) mg/dL Total Protein 5.7 L (6.3-8.2) g/dL Albumin 3.0 L (3.5-5.0) g/dL Ur Specific [place] (1.001-1.035) Urine Protein (Negative) Urine Ketones (Negative) Urine Blood (Negative) Hyaline Casts (0-2) /lpf Urine Mucus (None) /hpf Assessment and Plan (1) Appendicitis Narrative/Plan: 84-year-old female postoperative day #1, laparoscopic appendectomy - Due to the significant amount of exudate and purulence found during surgery, we will continue IV antibiotics today - Advance to soft diet - Continue pain control - Continue DVT prophylaxis - Medical recommendations appreciated - Likely discharge in 24 hours Current Visit: Yes Status: Acute Code(s): K37 - UNSPECIFIED APPENDICITIS SNOMED Code(s): 61156399
[2019-09-09 12:22] VITALS: BMI 19.8
[2019-09-09] MEDS: HYDROcodone/APAP 5-325MG 1 EACH TAB PO PRN ×2 (12:47→19:25)
[2019-09-09] MEDS: SODIUM CHLORIDE 0.9% 1,000 ML IV SCH ×2 (19:22→19:40)
--- NOTE | 2019-09-09 23:44 | PN ---
PROGRESS NOTE White female, remains on Zosyn for acute appendicitis status post appendectomy. Blood pressure was elevated during surgery. She has an NG tube in place. No chest pain or shortness of breath. Cardiovascular S1, S2. Blood pressure is 130-160 over 60s to 70s. Temp 98, respiratory 16 to 18, pulse 60s 70s, 94% on 2 L. Lungs decreased breath sounds x4. Cardiovascular S1, S2. GI shows G tube in place. PLAN: Continue on Norvasc 5 mg a day for blood pressure. Continue on IV cefazolin, nebulized treatments for breathing trouble. OG drain shows 30 mL serosanguineous output. Advance diet. Possible discharge home in the morning. Continue broad-spectrum antibiotics and blood pressure medications. Advance diet to soft. Possible discharge home tomorrow. MMODL / IJN: [id number] /
[2019-09-10] MEDS: PIPERACILLIN-TAZOBACTAM 3.375 GM in SODIUM CHLORIDE 0.9% 100 ML IVPB SCH ×2 (00:07→07:45)
[2019-09-10] MEDS: LEVOTHYROXINE 88 MCG TAB PO SCH (04:36)
[2019-09-10] MEDS: SODIUM CHLORIDE 0.9% 1,000 ML IV SCH (04:41)
[2019-09-10] MEDS: HEPARIN SODIUM,PORCINE 5,000 UNIT/ML 1 ML VIAL SQ SCH (07:45)
--- NOTE | 2019-09-10 07:54 | P.DS ---
Providers Date of admission: 09/08/19 14:30 Attending physician: Jerson Engel DO Consults: 09/08/19 14:16 Consult Physician Stat Consulting Provider: Anant Arce Consult Reason/Comments: Appendicitis Do you want consulting provider notified?: Yes Primary care physician: Anant Arec - Discharge Diagnosis(es) (1) Appendicitis Current Visit: Yes Status: Acute Hospital Course: 84-year-old female presented to the emergency department with complaints of abdominal pain. On workup she was found to have acute appendicitis. She was taken for laparoscopic appendectomy. Postoperatively, she was admitted to the medical surgical floor and did improve during her admission. Her diet was advanced and her pain continued to improve. Prior to her discharge Discharge, OG drain was removed from her abdomen. She was noted to be surgically stable for discharge on 09/10/2019. Assessment: Abdomen: Soft, appropriate tenderness, nondistended, no rebound, no guarding, incision sites are clean, dry and intact Procedures: Laparoscopic appendectomy Patient Condition at Discharge: Good Plan - Discharge Summary Discharge Rx Participant: No New Discharge Prescriptions: New HYDROcodone/APAP 5-325MG [[place] 5-325] 1 each PO Q6HR PRN #10 tab PRN Reason: Pain Amoxicillin/Potassium Clav [Augmentin 500-125 Tablet] 1 tab PO Q12HR #10 tab Continue Levothyroxine Sodium [Synthroid] 88 mcg PO DAILY Discharge Medication List Levothyroxine Sodium [Synthroid] 88 mcg PO DAILY 09/08/19 [History] Amoxicillin/Potassium Clav [Augmentin 500-125 Tablet] 1 tab PO Q12HR #10 tab 09/10/19 [Rx] HYDROcodone/APAP 5-325MG [[place] 5-325] 1 each PO Q6HR PRN #10 tab 09/10/19 [Rx] Follow up Appointment(s)/Referral(s): Anant Arce MD [Primary Care Provider] - 1-2 days Jerson Engel DO [Doctor of Osteopathic Medicine] - 1 Week Patient Instructions/Handouts: Laparoscopic Appendectomy (DC) Activity/Diet/Wound Care/Special Instructions: Okay to shower Continue soft diet Take antibiotics as prescribed Increase activity every day Quit smoking tobacco products Discharge Disposition: HOME SELF-CARE
[2019-09-10] MEDS: amLODIPine 5 MG TAB PO SCH (08:08)
[2019-09-10 08:40] LABS: Basophils % (A) 0 %; Eosinophils # (A) 0.1 k/uL (0-0.7); Eosinophils % (A) 1 %; HCT 41.2 % (34.0-46.0); HGB 13.7 gm/dL (11.4-16.0); Lymphocytes % (A) 9 %; MCH 31.9 pg (25.0-35.0); MCHC 33.3 g/dL (31.0-37.0); MCV 95.8 fL (80.0-100.0); Mean Platelet Volume 7.3; Monocytes # (A) 0.6 k/uL (0-1.0); Monocytes % (A) 6 %; Neutrophils # (A) 9.6 k/uL (1.3-7.7); Neutrophils % (A) 83 %; Platelet Count 182 k/uL (150-450); RBC 4.31 m/uL (3.80-5.40); WBC 11.5 k/uL (3.8-10.6)
[2019-09-10 08:59] LABS: Potassium 3.3 mmol/L (3.5-5.1)
[2019-09-10 09:06] VITALS: PULSE 85; RESP 12; TEMP 98.7
[2019-09-10] MEDS ORDERED: amLODIPine 5 MG TAB PO STA (09:43)
[2019-09-10 10:23] VITALS: BP 173/84
--- NOTE | 2019-09-10 11:24 | PN ---
PROGRESS NOTE This is an 84-year-old white female, status post appendicitis. She had blood pressure elevated, she is around 200s systolic today. Increase her Norvasc to 5 mg b.i.d. and Water today and possibly discharge home if her blood pressure comes down. She is debating to go home. She had a OG tube drainage, status post appendicitis/ CARDIOVASCULAR: S1-S2. LUNGS: Clear. GI: Soft. HEMATOLOGY: Negative Homans. Status post appendicitis, hypertension acceleration, Norvasc 5 mg b.i.d. Possible discharge home. MMODL / IJN: [id number] /
== END 2019-09-10 11:57 | disposition home or self-care (01) ==
LOC: EC 11:38 → 4SSUR 14:30
PROVIDERS: ADMIT Surgery; ATTEND Surgery
DX: K35.33 Acute appendicitis with perforation, localized peritonitis, and gangrene, with abscess (principal); K36 Other appendicitis; I10 Essential (primary) hypertension; E03.9 Hypothyroidism, unspecified; H40.9 Unspecified glaucoma; R60.0 Localized edema; J44.9 Chronic obstructive pulmonary disease, unspecified; F17.210 Nicotine dependence, cigarettes, uncomplicated; R35.8 Other polyuria; Z79.890 Hormone replacement therapy; Z79.899 Other long term (current) drug therapy
CPT/HCPCS: 44970; 96361; 96374; 96375; 99285; 36415; 93005; 88304; 80053 ×2; 80048; 82150; 83690; 85025 ×3; 85610; 85730; 81001; 87040; 74177; G0378 ×3; J2543 ×3; J2250; J0360; J1644 ×2; J2710; J2405; J2001; J3010; J2270; J1170; J0330; J2704; Q9967

== ENCOUNTER 2019-11-02 16:17 | Inpatient (IN) | payer MEDICARE ==
[2019-11-02] MEDS ORDERED: SODIUM CHLORIDE 0.9% 500 ML 500 ML IV STA (16:45)
[2019-11-02 16:59] LABS: Basophils % (A) 1 %; Eosinophils # (A) 0.1 k/uL (0-0.7); Eosinophils % (A) 1 %; HGB 13.3 gm/dL (11.4-16.0); Lymphocytes # (A) 1.1 k/uL (1.0-4.8); Lymphocytes % (A) 19 %; MCH 30.8 pg (25.0-35.0); MCHC 32.5 g/dL (31.0-37.0); MCV 94.6 fL (80.0-100.0); Mean Platelet Volume 7.3; Monocytes # (A) 0.4 k/uL (0-1.0); Monocytes % (A) 7 %; Neutrophils # (A) 4.1 k/uL (1.3-7.7); Neutrophils % (A) 69 %; Platelet Count 232 k/uL (150-450); RBC 4.33 m/uL (3.80-5.40); RDW 14.1 % (11.5-15.5); WBC 5.9 k/uL (3.8-10.6)
[2019-11-02 17:05] LABS: Albumin 4.3 g/dL (3.5-5.0); Calcium 9.5 mg/dL (8.4-10.2); Potassium 4.1 mmol/L (3.5-5.1); Total Bilirubin 0.5 mg/dL (0.2-1.3); Total Protein 7.5 g/dL (6.3-8.2)
[2019-11-02 17:14] LABS: INR 0.9 (<1.2); Partial Thromboplastin Time 23.4 sec (22.0-30.0); Prothrombin Time 9.8 sec (9.0-12.0)
--- NOTE | 2019-11-02 17:22 | ED ---
General Adult HPI - General Chief complaint: Neuro Symptoms/Deficit Stated complaint: Altered mental status Time Seen by Provider: 11/02/19 16:20 Source: patient, family, RN notes reviewed, old records reviewed Mode of arrival: wheelchair Limitations: no limitations - History of Present Illness Initial comments: This is an 84-year-old female presents emergency department stating that Saturday night she went to bed and felt fine and was speaking fine. Patient states Saturday she woke up about 8:30 9:00 and she had slurred speech and she found that her right hand was not as coordinated as it normally was. Patient states she was knocking objects over. Patient stated her strength seemed to be all right and that and she just was unable to control it as well as normal. Patient denies headache patient denies any specific numbness weakness. Patient's daughter denies any facial droop. Patient denies any visual disturbance. Patient denies any chest pain or palpitations. Patient denies being lightheaded or dizzy. Patient denies any abdominal pain. Patient denies nausea vomiting diarrhea. Patient states she still is smoking - Related Data Home Medications Medication Instructions Recorded Confirmed Levothyroxine Sodium [Synthroid] 88 mcg PO DAILY 09/08/19 09/08/19 Previous Rx's Medication Instructions Recorded Amoxicillin/Potassium Clav 1 tab PO Q12HR #10 tab 09/10/19 [Augmentin 500-125 Tablet] HYDROcodone/APAP 5-325MG [[place] 1 each PO Q6HR PRN #10 tab 09/10/19 5-325] Allergies Allergy/AdvReac Type Severity Reaction Status Date / Time No Known Allergies Allergy Verified 11/02/19 16:20 Review of Systems ROS Statement: Those systems with pertinent positive or pertinent negative responses have been documented in the HPI. ROS Other: All systems not noted in ROS Statement are negative. Past Medical History Past Medical History: Eye Disorder, Hypertension, Thyroid Disorder Additional Past Medical History / Comment(s): Bilateral glaucoma, lower leg edema at times, hypothyroid. History of Any Multi-Drug Resistant Organisms: None Reported Past Surgical History: Appendectomy, Hernia Repair Additional Past Surgical History / Comment(s): R inguinal hernia repair, bilateral cataract removals Past Anesthesia/Blood Transfusion Reactions: No Reported Reaction Past Psychological History: No Psychological Hx Reported Smoking Status: Current every day smoker Past Alcohol Use History: None Reported Past Drug Use History: None Reported - Past Family History Father Family Medical History: No Reported History Additional Family Medical History / Comment(s): Father was healthy and at the age of 94 yrs. Mother Family Medical History: No Reported History Additional Family Medical History / Comment(s): Mother was healthy and at the age of 95 yrs. General Exam - General Exam Comments Initial Comments: GENERAL: Patient is well-developed and well-nourished. Patient is nontoxic and well- hydrated and is in no acute distress. ENT: Neck is soft and supple. No significant lymphadenopathy is noted. Oropharynx is clear. Moist mucous membranes. Neck has full range of motion without eliciting any pain. There is no thyroid enlargement and no masses were felt. EYES: The sclera were anicteric and conjunctiva were pink and moist. Extraocular movements were intact and pupils were equal round and reactive to light. Eyelids were unremarkable. PULMONARY: Unlabored respirations. Good breath sounds bilaterally. No audible rales rhonchi or wheezing was noted. CARDIOVASCULAR: There is a regular rate and rhythm without any murmurs gallops or rubs. Femoral pulses are equal bilaterally ABDOMEN: Soft and nontender with normal bowel sounds. No palpable organomegaly was noted. There is no palpable pulsatile mass. SKIN: Skin is clear with no lesions or rashes and otherwise unremarkable. NEUROLOGIC: Patient is alert and oriented x3. Cranial nerves II through XII are grossly intact. Motor and sensory are also intact. Normal speech, volume and content. Symmetrical smile. Patient was inaccurate with finger to nose on the right side when compared to the left. Patient's any was 2 MUSCULOSKELETAL: Normal extremities with adequate strength and full range of motion. No lower extremity swelling or edema. No calf tenderness. LYMPHATICS: No significant lymphadenopathy is noted PSYCHIATRIC: Normal psychiatric evaluation. Normal interpersonal interactions appears functionally intact in deals appropriately with others. No signs of depression. No signs of anxiety. No delusions. No hallucinations. Limitations: no limitations Course Vital Signs 11/02/19 16:18 Temperature 98.1 F Pulse Rate 59 L Respiratory 16 Rate Blood Pressure 172/76 O2 Sat by Pulse 95 Oximetry Medical Decision Making - Medical Decision Making EKG shows a sinus rhythm at 61 bpm patient has a first-degree AV block. Her int ervals 240 QRS 142 QT intervals 456 QTC is 459. Patient's EKG shows no ST segment elevation or depression. Patient does have some T-wave inversions in leads [address] of the brain shows no acute abnormality. Chest x-ray shows no acute abnormality. I spoke with Dr. Arce he agreed to admit the patient admitted the patient I wrote admitting orders I consulted neurology. - Lab Data Result diagrams: 11/02/19 16:39 11/02/19 16:39 Lab Results 11/02/19 11/02/19 11/02/19 Range/Units 16:39 16:39 16:39 WBC 5.9 (3.8-10.6) k/uL RBC 4.33 (3.80-5.40) m/uL Hgb 13.3 (11.4-16.0) gm/dL Hct 41.0 (34.0-46.0) % MCV 94.6 (80.0-100.0) fL MCH 30.8 (25.0-35.0) pg MCHC 32.5 (31.0-37.0) g/dL RDW 14.1 (11.5-15.5) % Plt Count 232 (150-450) k/uL Neutrophils % 69 % Lymphocytes % 19 % Monocytes % 7 % Eosinophils % 1 % Basophils % 1 % Neutrophils # 4.1 (1.3-7.7) k/uL Lymphocytes # 1.1 (1.0-4.8) k/uL Monocytes # 0.4 (0-1.0) k/uL Eosinophils # 0.1 (0-0.7) k/uL Basophils # 0.0 (0-0.2) k/uL PT 9.8 (9.0-12.0) sec INR 0.9 (<1.2) APTT 23.4 (22.0-30.0) sec Sodium 142 (137-145) mmol/L Potassium 4.1 (3.5-5.1) mmol/L Chloride 107 (98-107) mmol/L Carbon Dioxide 25 (22-30) mmol/L Anion Gap 10 mmol/L BUN 24 H (7-17) mg/dL Creatinine 0.96 (0.52-1.04) mg/dL Est GFR (CKD-EPI)AfAm 62 (>60 ml/min/1.73 sqM) Est GFR (CKD-EPI)NonAf 54 (>60 ml/min/1.73 sqM) Glucose 124 H (74-99) mg/dL Calcium 9.5 (8.4-10.2) mg/dL Total Bilirubin 0.5 (0.2-1.3) mg/dL AST 30 (14-36) U/L ALT 16 (4-34) U/L Alkaline Phosphatase 104 (38-126) U/L Troponin I (0.000-0.034) ng/mL Total Protein 7.5 (6.3-8.2) g/dL Albumin 4.3 (3.5-5.0) g/dL 11/02/19 Range/Units 16:39 WBC (3.8-10.6) k/uL RBC (3.80-5.40) m/uL Hgb (11.4-16.0) gm/dL Hct (34.0-46.0) % MCV (80.0-100.0) fL MCH (25.0-35.0) pg MCHC (31.0-37.0) g/dL RDW (11.5-15.5) % Plt Count (150-450) k/uL Neutrophils % % Lymphocytes % % Monocytes % % Eosinophils % % Basophils % % Neutrophils # (1.3-7.7) k/uL Lymphocytes # (1.0-4.8) k/uL Monocytes # (0-1.0) k/uL Eosinophils # (0-0.7) k/uL Basophils # (0-0.2) k/uL PT (9.0-12.0) sec INR (<1.2) APTT (22.0-30.0) sec Sodium (137-145) mmol/L Potassium (3.5-5.1) mmol/L Chloride (98-107) mmol/L Carbon Dioxide (22-30) mmol/L Anion Gap mmol/L BUN (7-17) mg/dL Creatinine (0.52-1.04) mg/dL Est GFR (CKD-EPI)AfAm (>60 ml/min/1.73 sqM) Est GFR (CKD-EPI)NonAf (>60 ml/min/1.73 sqM) Glucose (74-99) mg/dL Calcium (8.4-10.2) mg/dL Total Bilirubin (0.2-1.3) mg/dL AST (14-36) U/L ALT (4-34) U/L Alkaline Phosphatase (38-126) U/L Troponin I <0.012 (0.000-0.034) ng/mL Total Protein (6.3-8.2) g/dL Albumin (3.5-5.0) g/dL Disposition Clinical Impression: Cerebrovascular accident (CVA) Disposition: ADMITTED IP TO THIS HOSP Referrals: Anant Arce MD [Primary Care Provider] - 1-2 days Time of Disposition: 17:43
--- NOTE | 2019-11-02 17:35 | CT ---
EXAMINATION TYPE: CT brain wo con for TPA DATE OF EXAM: 11/02/2019 COMPARISON: None HISTORY: Right hand weakness and fatigue. CT DLP: 1102.8 mGycm Automated exposure control for dose reduction was used. There is patchy hypodensity in the periventricular white matter. There is cerebral cortical atrophy. There is no mass effect nor midline shift. There is no sign of intracranial hemorrhage. The calvarium is intact. There is no evidence of acute cortical infarct. There is left occipital lobe cortical hyp odensity consistent with old cortical infarct. IMPRESSION: Cerebral atrophy and chronic small vessel ischemia. No acute intracranial abnormality.
[2019-11-02] MEDS ORDERED: ASPIRIN 325 MG TAB PO STA (17:44)
--- NOTE | 2019-11-02 17:49 | XR ---
EXAMINATION TYPE: XR chest 2V DATE OF EXAM: 11/02/2019 COMPARISON: February 15, 2016 HISTORY: Right-sided weakness TECHNIQUE: FINDINGS: There is no heart failure nor confluent pneumonic infiltrate. Costophrenic angles are clear . Thoracic aorta is atheromatous. Bony thorax is intact. IMPRESSION: No active cardiopulmonary disease. No significant change.
--- NOTE | 2019-11-02 18:26 | CT ---
EXAMINATION TYPE: CT angio head neck DATE OF EXAM: 11/02/2019 COMPARISON: None HISTORY: Right hand weakness and fatigue. CT DLP: 321.3 mGycm Automated exposure control for dose reduction was used. CONTRAST: Performed with IV Contrast, patient injected with 65 mL of Isovue 370. Multiple axial sections were obtained from the aortic arch to the vertex of the brain with intravenou s contrast. There are 3-D post processed images. There is normal branching pattern of the great vessels on the aortic arch. There is bilateral subclav angel artery flow. There is some pleural thickening and infiltrate at the right lung apex. There is duncan ateral arterial flow in the vertebral arteries. There is arterial flow in the common internal and ext ernal carotid arteries. There is no evidence of carotid or vertebral artery aneurysm or dissection. I see no sign of hemodynamic stenosis. There is no significant plaque formation. Carotid artery bifurc ations are widely patent. There is arterial flow in the vertebrobasilar artery system. There is arterial flow in the anterior m iddle and posterior cerebral arteries. There is no evidence of intracranial aneurysm or neovascularit y. There is no mass effect. There is normal contrast opacification of the venous sinuses. There is relative decreased arterial op acification of the distal posterior cerebral arteries bilaterally. IMPRESSION: Negative CT angiogram of the neck. There is relative decreased distal flow in the posterior cerebral arteries. There is evidence of old cortical infarct left occipital lobe. No intracranial aneurysm.
[2019-11-02] MEDS: amLODIPine 5 MG TAB PO SCH (21:10)
--- NOTE | 2019-11-03 01:25 | CT ---
EXAMINATION TYPE: CT chest wo con DATE OF EXAM: 11/03/2019 COMPARISON: None HISTORY: Wheezing CT DLP: 193.10 mGycm Automated exposure control for dose reduction was used. Multiple axial sections were obtained from the thoracic inlet to the diaphragm with no contrast. There is some pulmonary hyperinflation. There is mild pleural thickening at the lung apices. There ar e emphysematous changes in both lungs. There is no pleural effusion. Upper abdominal soft tissues are intact. There is some contrast in the kidneys from contrast exam yesterday. There is no pericardial effusion. There is coronary artery calcification. There is mild bronchial car tilage calcification. There are no hilar masses. There is no mediastinal adenopathy. Thoracic aorta s hows no evidence of aneurysm. The bony thorax shows T12 30% anterior wedging. The ribs appear intact. Impression COPD. Mild bilateral apical pleural and pulmonary scarring. No suspicious pulmonary mass. Atherosclerotic vascular disease. Old T12 compression fracture.
--- NOTE | 2019-11-03 06:33 | HP ---
HISTORY AND PHYSICAL This 84-year-old white female came to the ER. She went to bed, felt fine, was speaking fine. She woke up Saturday morning over 24 hours ago with slurred speech and her right hand was not as coordinated as it normally is, knocking things over, unable to control her right hand. Denies any headache, denies any facial drooping or visual disturbance, but garbled speech and dysarthria. HOME MEDICATIONS: She has been noncompliant with Norvasc 5 mg a day and Synthroid 88 mcg daily. ALLERGIES: Negative. PAST MEDICAL HISTORY: Bilateral glaucoma, hypothyroidism, hypertension, ophthalmologic disorder. REVIEW OF SYSTEMS: Fourteen-point review of systems negative except for mentioned in HPI. SURGERIES: Appendectomy, hernia repair, right inguinal hernia repair, bilateral cataracts. SOCIAL HISTORY: Current everyday smoker. No alcohol. No drugs. FAMILY HISTORY: Father at 94. Mother at age 95. PHYSICAL EXAMINATION: She is thin, cachectic, white female. LUNGS: Show wheezes, mild to moderate x4. CARDIAC: Regular rate and rhythm. OPHTHALMOLOGIC: Pupils equal, round, reactive. ENT: No mass. ABDOMEN: Soft. SKIN: Clear. NEUROLOGIC: She appears to have some facial weakness, possibly facial drooping. Finger to nose is poor on the right. PSYCH: Fair mood and affect. Temp 98.1, pulse 59, blood pressure 170s over 60s to 75, O2 of 95%, respiratory 16 to 20. ASSESSMENT: 1. Cerebrovascular accident. 2. Hypertension acceleration. 3. Hypothyroidism. Continue current treatment. Follow up in next 24 to 48 hours. Neurology consult pending. MMODL / IJN: [id number] /
[2019-11-03 07:39] LABS: Cholesterol 194 mg/dL (<200); HDL Cholesterol 80 mg/dL (40-60); LDL Cholesterol,Calculated 102 mg/dL (0-99); Triglycerides 58 mg/dL (<150)
[2019-11-03] MEDS ORDERED: amLODIPine 5 MG TAB PO SCH (09:00)
[2019-11-03] MEDS: amLODIPine 5 MG TAB PO SCH ×3 (10:20→19:41)
[2019-11-03] MEDS: LEVOTHYROXINE 88 MCG TAB PO SCH (10:21)
--- NOTE | 2019-11-03 11:00 | ECHOF ---
Referral Reason:cva embolic MEASUREMENTS -------- HEIGHT: 157.5 cm WEIGHT: 49.0 kg BP: 148/85 RVIDd: 2.7 cm (< 3.3) IVSd: 1.1 cm (0.6 - 1.1) LVIDd: 3.8 cm (3.9 - 5.3) LVPWd: 1.2 cm (0.6 - 1.1) IVSs: 1.4 cm LVIDs: 2.7 cm LVPWs: 1.3 cm LA Diam: 3.3 cm (2.7 - 3.8) LAESV Index (A-L): 26.10 ml/m Ao Diam: 3.0 cm (2.0 - 3.7) AV Cusp: 1.8 cm (1.5 - 2.6) LA Diam: 3.9 cm (2.7 - 3.8) MV EXCURSION: 18.221 mm (> 18.000) MV EF SLOPE: 73 mm/s (70 - 150) EPSS: 1.7 cm MV E Franki: 0.38 m/s MV DecT: 239 ms MV A Franki: 0.71 m/s MV E/A Ratio: 0.54 RAP: 5.00 mmHg RVSP: 12.83 mmHg FINDINGS -------- Sinus rhythm. This was a technically good study. LV size, wall thickness and systolic function are normal, with an EF greater than 55%. The left kathryn tricular size is normal. The diastolic filling pattern is normal for the age of the patient 9.10. The right ventricle is normal in size. The left atrial size is normal. The right atrial size is normal. There is mild aortic valve sclerosis. There is mild aortic regurgitation. Mild mitral annular calcification present. Mild mitral regurgitation is present. Mild tricuspid regurgitation present. Right ventricular systolic pressure is normal at < 35 mmHg. There is no evidence of pulmonary hypertension. There is no pulmonic regurgitation present. The aortic root size is normal. There is no pericardial effusion. CONCLUSIONS -------- 1. Sinus rhythm. 2. This was a technically good study. 3. LV size, wall thickness and systolic function are normal, with an EF greater than 55%. 4. The left ventricular size is normal. 5. The diastolic filling pattern is normal for the age of the patient 9.10 6. The right ventricle is normal in size. 7. The left atrial size is normal. 8. The right atrial size is normal. 9. There is mild aortic valve sclerosis. 10. There is mild aortic regurgitation. 11. Mild mitral annular calcification present. 12. Mild mitral regurgitation is present. 13. Mild tricuspid regurgitation present. 14. Right ventricular systolic pressure is normal at < 35 mmHg. 15. There is no evidence of pulmonary hypertension. 16. There is no pulmonic regurgitation present. 17. The aortic root size is normal. 18. There is no pericardial effusion. BAND SAWMILL OPERATOR: Deborah Vargas RDCS
--- NOTE | 2019-11-03 14:57 | P.CNNES ---
History of Present Illness Consult date: 11/03/19 Requesting physician: Dimitri Shelby Reason for Consult: CVA History of Present Illness: Patient is a 84-year-old female, never had any history of strokes, states that she woke up on Saturday morning, 2 days ago and noticed her right hand was weak, difficulty with picking up with the right hand. Her left hand was fine. She also noticed some slurred speech but did not notice any facial droop or any problem with balance more than baseline. Patient stayed home, but finally decided to come to the ER the next day and arrived yesterday on Saturday at 4:17 PM. Patient was not a candidate for TPA as her symptoms have been present for more than 24 hours. Patient underwent computed tomography scan of the head which revealed cerebral atrophy and chronic small vessel ischemia. There is left occipital lobe cortical hypodensity consistent with old cortical infarct. On my review, there is evidence of possible subacute left pontine lacunar infarct. EKG showed sinus rhythm with first-degree AV block. Premature atrial complexes. CTA of the neck was normal. CTA of the head showed relative decreased distal flow in the posterior cerebral arteries. There is evidence of old cortical infarct left occipital lobe. No intracranial aneurysm. Patient had a 2-D echo in which her ejection fraction is greater than 55%. Left atrial size is normal. There is no evidence of pulmonary hypertension. Patient's CBC is normal, Chem-20 normal. Her total cholesterol is 194, LDL 102, HDL 80, triglycerides 58. Patient states she has history of hypertension but denies diabetes. She has smoked half pack per day since late 20s. (Half pack per day for 55 years). Denies any alcohol. Patient does not take any antiplatelet medication at home. Review of Systems Denies headache, problem with the vision. She does have slight difficulty swallowing. Denies chest pain. Denies nausea vomiting diarrhea abdominal pain. Past Medical History Past Medical History: Eye Disorder, Hypertension, Thyroid Disorder Additional Past Medical History / Comment(s): Bilateral glaucoma, lower leg edema at times, hypothyroid, 2017 possible TIA/bradycardia, stress urine incontinence. History of Any Multi-Drug Resistant Organisms: None Reported Past Surgical History: Appendectomy, Hernia Repair Additional Past Surgical History / Comment(s): R inguinal hernia repair, bi lateral cataract removals Past Anesthesia/Blood Transfusion Reactions: No Reported Reaction Smoking Status: Current every day smoker - Past Family History Father Family Medical History: No Reported History Additional Family Medical History / Comment(s): Father was healthy and at the age of 94 yrs. Mother Family Medical History: No Reported History Additional Family Medical History / Comment(s): Mother was healthy and at the age of 95 yrs. Medications and Allergies Home Medications Medication Instructions Recorded Confirmed Type Levothyroxine Sodium [Synthroid] 88 mcg PO DAILY 09/08/19 11/02/19 History amLODIPine [Norvasc] 5 mg PO DAILY 11/02/19 11/02/19 History Allergies Allergy/AdvReac Type Severity Reaction Status Date / Time No Known Allergies Allergy Verified 11/02/19 18:04 Physical Examination - Vital Signs Vital Signs: Vital Signs Temp Pulse Pulse Resp BP BP Pulse Ox 11/03/19 12:00 98.3 F 75 18 166/74 95 11/03/19 07:54 93 L 11/03/19 07:50 97.7 F 71 18 202/91 94 L 11/03/19 05:29 98.3 F 63 16 148/85 94 L 11/02/19 23:30 187/77 11/02/19 20:19 70 16 192/85 95 11/02/19 18:30 68 18 177/82 97 11/02/19 16:18 98.1 F 59 L 16 172/76 95 Intake and Output 11/02/19 11/03/19 11/03/19 22:59 06:59 14:59 Other: # Voids 2 Weight 48.988 kg 48.988 kg On examination patient is an elderly female, in no acute distress. Patient is alert and awake. She has mild dysarthria. No aphasia. On cranial examination pupils are round and reactive to light, visual english revealed right sided neglect on double simultaneous stimulation with possible some right field cut. She has right facial asymmetry, central type. Tongue protrudes the midline. Palatal elevation and sensation normal. On muscle strength testing patient has mild right-sided pronation, with flexion at the elbow. 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 The strength is normal in the lower limbs. Reflexes symmetric and plantars are downgoing. Sensory touch is equal with no neglect. Patient is mild to moderate dysmetria for [id number] on the right. Tone and bulk of muscles normal. No obvious bruit, S1 and S2 audible. Results - Laboratory Findings CBC and BMP: 11/02/19 16:39 11/02/19 16:39 Abnormal Lab Findings: Abnormal Labs 11/02/19 11/03/19 16:39 06:58 BUN 24 H Glucose 124 H LDL Cholesterol, Calc 102 H HDL Cholesterol 80 H Assessment and Plan Assessment: * 84-year-old female admitted with an acute stroke. Patient has mild to moderate dysarthria, right facial brachial weakness. CT head revealed possible subacute left pontine infarct. * Right visual field deficit, likely related to chronic left occipital lobe infarct, although patient denies any history of CVA. * Hypertension * Chronic tobacco use. Plan: * Patient will undergo MRI of the brain to localize acute versus chronic CVA. * Permissive hypertension for 24-48 hours. * Patient was not taking any antiplatelet medication at home. Aspirin 325 mg has been started. I would consider adding Plavix 75 mg daily for 21 days and then stay with monotherapy with aspirin. * Start Lipitor 20 mg daily. * Complete tobacco cessation. * PT OT, speech therapy. * DVT prophylaxis.
--- NOTE | 2019-11-03 17:12 | MR ---
EXAMINATION TYPE: MR brain wo con DATE OF EXAM: 11/03/2019 COMPARISON: None HISTORY: Rt hand weakness, fatigue, CVA Multiplanar multiecho imaging of the brain was performed without contrast. There is diffuse cerebral cortical atrophy. There is extensive patchy increased coalescent increased signal throughout the periventricular white matter on the T2 and FLAIR images. There is rounded 12 mm focus of increased signal in the posterior left internal capsule on the diffus ion images suggestive of an acute infarct. There is no midline shift. There is no sign of intracrania l hemorrhage. There is no mass effect. There is increased signal in the medial left occipital lobe co nsistent with an old cortical infarct. There is severe thinning of the corpus callosum. There is patc hy increased signal within the indio with multiple foci that measure up to 7 mm. IMPRESSION: Cerebral atrophy. 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 Extensive chronic small vessel ischemia w ith multiple lacunar infarcts in the periventricular white matter. Demyelinating disease not excluded . There is evidence of an acute lacunar infarct left posterior internal capsule.
[2019-11-03] MEDS: CLOPIDOGREL 75 MG TAB PO SCH (19:57)
[2019-11-03] MEDS: ASPIRIN 325 MG TAB PO SCH (19:57)
[2019-11-03] MEDS: ATORVASTATIN 40 MG TAB PO SCH (19:59)
--- NOTE | 2019-11-04 06:00 | PN ---
PROGRESS NOTE An 84-year-old white female with CVA. MRI shows multiple CVAs and at the lacunar CVA of the left cortex. The patient continues to have right hand paresis, left-sided facial asymmetry. CARDIOVASCULAR: S1, S2. LUNGS: Wheezes x4. HEMATOLOGY: Negative Homans. ASSESSMENT: 1. Acute cerebrovascular accident. 2. History of cerebrovascular accidents. 3. Nicotine addiction. 4. Hypertension acceleration. Risk factor modification. See Neurology. Recommendations PT, OT. MMODL / IJN: [id number] /
[2019-11-04] MEDS: LEVOTHYROXINE 88 MCG TAB PO SCH (06:57)
[2019-11-04] MEDS: amLODIPine 5 MG TAB PO SCH ×2 (08:45→20:17)
[2019-11-04] MEDS: ATORVASTATIN 40 MG TAB PO SCH (09:06)
[2019-11-04] MEDS: ASPIRIN 325 MG TAB PO SCH (09:06)
[2019-11-04] MEDS: CLOPIDOGREL 75 MG TAB PO SCH (09:07)
--- NOTE | 2019-11-04 12:19 | P.CONS ---
History of Present Illness - Chief Complaint Gait disturbance, right hemiparesthesias - History of Present Illness I had the opportunity to see patient for inpatient rehab consultation with regard to gait disturbance. She was admitted to [facility] November 02 acute onset right-sided weakness and speech disturbance. Seen by neurology, Dr. Reji oropeza. Head CT demonstrates atrophy and small vessel change. Chest x-ray negative. Angiogram CT negative of neck. Chest CT with apical scarring bilateral. Brain MRI with cerebral atrophy, small vessel change, multiple lacunar disease and periventricular change. Seen by speech therapy notes dysarthria. PT and OT prescribed. Previous functional history as elicited patient: 84 showed right-handed white female who is lives in a first-floor apartment alone. Retired. Patient describes independent with cooking, standing shower and gait without device. Daughter does the laundry and driving. Dr. Anant Arce is PMD. Patient smokes less than a pack per day and denies alcohol. Review of Systems Review of systems: ENT: Denies sneezes or discharge. Eyes: Denies discharge or photophobia. Cardiac: Denies chest pain or palpitation. Pulmonary: Denies cough or shortness of breath. Breast: Denies discharge or lumps. Gastrointestinal: Denies nausea, emesis, constipation, diarrhea. Genitourinary: Denies discharge or frequency. Musculoskeletal: Denies muscle or bone aches. Neurologic: Mild right-sided weakness and speech disturbance, improved from admission. Endocrine: Denies shakes or sweats. Oncology: Denies cancers. Dermatologic: Denies rash, itching, pruritus. ALLERGY/immunology: Denies sneezes, rashes. Past Medical History Past Medical History: Eye Disorder, Hypertension, Thyroid Disorder Additional Past Medical History / Comment(s): Bilateral glaucoma, lower leg edema at times, hypothyroid, 2017 possible TIA/bradycardia, stress urine incon tinence. History of Any Multi-Drug Resistant Organisms: None Reported Past Surgical History: Appendectomy, Hernia Repair Additional Past Surgical History / Comment(s): R inguinal hernia repair, bilateral cataract removals Past Anesthesia/Blood Transfusion Reactions: No Reported Reaction Smoking Status: Current every day smoker - Past Family History Father Family Medical History: No Reported History Additional Family Medical History / Comment(s): Father was healthy and at the age of 94 yrs. Mother Family Medical History: No Reported History Additional Family Medical History / Comment(s): Mother was healthy and at the age of 95 yrs. Medications and Allergies Home Medications Medication Instructions Recorded Confirmed Type Levothyroxine Sodium [Synthroid] 88 mcg PO DAILY 09/08/19 11/02/19 History amLODIPine [Norvasc] 5 mg PO DAILY 11/02/19 11/02/19 History Allergies Allergy/AdvReac Type Severity Reaction Status Date / Time No Known Allergies Allergy Verified 11/02/19 18:04 Physical Exam Vitals: Vital Signs Temp Pulse Pulse Resp BP BP BP 11/04/19 11:57 97.3 F L 64 17 169/77 11/04/19 08:00 98.5 F 69 17 169/77 11/04/19 04:00 98.3 F 64 16 166/101 11/04/19 00:45 70 16 150/75 11/03/19 20:00 97.9 F 71 16 155/68 11/03/19 18:35 98.1 F 68 16 201/94 219/88 11/03/19 18:01 98.7 F 64 18 176/80 Pulse Ox 11/04/19 11:57 96 11/04/19 08:00 95 11/04/19 04:00 96 11/04/19 00:45 96 11/03/19 20:00 96 11/03/19 18:35 11/03/19 18:01 95 Intake and Output 11/03/19 11/04/19 11/04/19 22:59 06:59 14:59 Intake Total 350 100 Balance 350 100 Intake: Oral 350 100 Other: Voiding Method Toilet Toilet Toilet # Voids 1 Weight 99.6 kg Skin: Atrophic, intact. General: Overweight build and comfortable appearance. Head: Normocephalic, atraumatic. Eyes: Symmetric. Pupils equal round. Ears: Symmetric. Hearing within normal limits. Mouth: Clear. Neck: Supple. Carotid without bruit. Cardiac: Regular rate and rhythm. Lungs: Clear anteriorly and posteriorly. Abdomen: Soft active nontender. Extremities: Normal tone. Neurological: Mental status: Alert, cooperative, pleasant. Mild dysarthria per this examiner. Cranial nerves: Symmetric facial tone and trapezius. Motor: Active movement all 4 limbs and moves symmetrically. Sensation: Intact throughout. DTRs: Symmetric and equal throughout. Mobility: Did not attempt to sit or stand on my own. Results CBC & Chem 7: 11/02/19 16:39 11/02/19 16:39 Assessment and Plan (1) Cerebrovascular accident (CVA) Current Visit: Yes Status: Acute Code(s): I63.9 - CEREBRAL INFARCTION, UNSPECIFIED SNOMED Code(s): 858611129 Plan: Impression: 1. Gait disturbance due to stroke with right hemiparesthesias and dysarthria. 2. Hypertension. 3. Hypothyroid. Comments and plan: At this time speech therapy ongoing in PT and OT prescribed. Follow therapies with yourself. I discussed possible inpatient rehab with patient and she seems agreeable if necessary.
--- NOTE | 2019-11-04 15:58 | P.PN ---
Subjective Progress Note Date: 11/04/19 This is an 84-year-old female admitted with acute CVA, possible subacute left pontine infarct, hypertension, ongoing nicotine dependence and multiple other medical issues. Evaluated by neurology, neuro workup in progress. Brain MRI reported cerebral atrophy, old left occipital lobe cortical infarct, extensive chronic small vessel ischemia with multiple lacunar infarcts in the paraventricular white matter, demyelinating disease excluded, evidence of an acute back and upper infarct left posterior internal capsule. Maintained on aspirin, statin. Evaluated by PT/OT recommending subacute rehab. Participate with speech therapy. Denies chest pain, palpitations or increasing shortness of breath. Evaluated by Dr. Muniz, recommendations noted. Objective - Vital Signs Vital signs: Vital Signs Temp 97.3 F L 11/04/19 11:57 Pulse 64 11/04/19 11:57 Resp 17 11/04/19 11:57 BP 169/77 11/04/19 11:57 Pulse Ox 96 11/04/19 11:57 Intake & Output 11/03/19 11/04/19 11/04/19 18:59 06:59 18:59 Intake Total 350 100 Balance 350 100 Weight 48.988 kg 99.6 kg Intake: Oral 350 100 Other: Voiding Method Toilet Toilet # Voids 2 1 - Exam PHYSICAL EXAM: VITAL SIGNS: As above GENERAL: Sitting up in bed, alert and oriented 3 ,no acute distress HEENT: Conjunctivae normal. eyes normal. Tongue midline, minimal right facial symmetry NECK: No JVD. No thyroid enlargement. No LNs CARDIOVASCULAR: S1, S2 regular.. No murmur RESPIRATION: Breath sounds diminished in the bases. No rhonchi or crackles. No bronchial breathing. ABDOMEN: Soft, nontender . No guarding. no masses palpable. Bowel sounds heard. LEGS: No edema. no swelling NERVOUS SYSTEM: Mild dysarthria, symmetric deltoid and trapezius. Bilateral lower extremity strength normal/equal. Sensation intact. Skin: no rash - Labs CBC & Chem 7: 11/02/19 16:39 11/02/19 16:39 Assessment and Plan Assessment: Acute CVA with mild dysarthria, gait dysfunction, imbalance CT reporting possible subacute left pontine infarct. MRI reports evidence of an acute lacunar infarct left posterior internal capsule. Chronic left occipital lobe cortical infarct, extensive chronic small vessel ischemia with multiple lacunar infarcts in the paraventricular white matter. Possible demyelinating disease. Nicotine dependence Accelerated hypertension Plan: Continue on current medication regime ,monitoring and symptomatic treatment. PT/OT. Continue on aspirin, statin. Discharge planning in progress to make [facility] rehab. which has been discussed with family and patient-all in agreement with. Further recommendations to follow. The impression and plan of care has been dictated as directed. : I performed a history and examination of this patient, discussed the same with the dictator. I agree with the dictator's note ,documented as a scribe. Any additional findings or plans will be noted. .
--- NOTE | 2019-11-04 16:47 | EEG ---
ELECTROENCEPHALOGRAM REPORT DATE OF SERVICE: November 03, 2019. PREAMBLE: This is an 84-year-old female admitted with an acute stroke. The patient has dysarthria, right facial brachial weakness. This study is performed to look for any epileptiform activity. EEG FINDINGS: Routine 21 channel awake digital EEG recording was accomplished utilizing the 10/20 international system with bipolar and referential montages. The background consists of well developed, well regulated, moderate voltage activity in 9-10 hertz alpha. Background is posterior dominant and reactive to eye opening and closing. Photic driving response was not clearly seen. Different stages of sleep were not seen. No focal or generalized epileptiform activity was seen. EKG channel lead revealed some arrhythmia. IMPRESSION: This is a normal awake EEG. No focal lateralized or epileptiform activity was seen. MMODL / IJN: [id number] /
--- NOTE | 2019-11-04 17:29 | P.PN ---
Subjective Progress Note Date: 11/04/19 Patient is sitting in her bed, having her dinner. Patient offers no new complaints. Denies headache. Continues with some dysarthric speech and right arm weakness. Objective - Vital Signs Vital signs: Vital Signs Temp 97.3 F L 11/04/19 11:57 Pulse 64 11/04/19 11:57 Resp 17 11/04/19 11:57 BP 169/77 11/04/19 11:57 Pulse Ox 96 11/04/19 11:57 Intake & Output 11/03/19 11/04/19 11/04/19 18:59 06:59 18:59 Intake Total 350 100 Balance 350 100 Weight 48.988 kg 99.6 kg Intake: Oral 350 100 Other: Voiding Method Toilet Toilet # Voids 2 1 - Exam On examination patient's mental status is normal. She still has mildly dysarthric speech. Her right facial asymmetry has improved. Patient continues to have right arm weakness, with mild flexion of the right elbow while checking pronator drift. Staff Veterinarian is almost equal. Sensations equal. - Labs CBC & Chem 7: 11/02/19 16:39 11/02/19 16:39 Assessment and Plan Assessment: * 84-year-old female admitted with an acute left internal capsular stroke, likely due to small vessel disease. * Right visual field deficit, likely related to chronic left occipital lobe infarct, although patient denies any history of CVA. * Hypertension * Chronic tobacco use. Plan: * MRI of the brain revealed an acute lacunar infarct left posterior internal capsule. It also revealed old left occipital lobe cortical infarct. * Permissive hypertension for 24-48 hours. Patient's blood pressure is optimal 169/77. * Patient to be on dual antiplatelet medication for 1 month, with aspirin and Plavix 75 mg, thereafter stay with monotherapy with aspirin. * Continue Lipitor 20 mg daily. * Complete tobacco cessation. * EEG was normal. * PT OT, speech therapy. * Possible transfer to rehab in a.m. * Neurologically clear.
[2019-11-05] MEDS: LEVOTHYROXINE 88 MCG TAB PO SCH (06:20)
[2019-11-05] MEDS: amLODIPine 5 MG TAB PO SCH (07:46)
[2019-11-05 08:04] VITALS: RESP 18
[2019-11-05] MEDS: ASPIRIN 325 MG TAB PO SCH (08:19)
[2019-11-05] MEDS: ATORVASTATIN 40 MG TAB PO SCH (08:19)
[2019-11-05] MEDS: CLOPIDOGREL 75 MG TAB PO SCH (08:19)
--- NOTE | 2019-11-05 09:02 | DS ---
DISCHARGE SUMMARY DISCHARGE MEDICATIONS: 1. Aspirin 325 daily. 2. Lipitor 40 mg daily. 3. Norvasc 5 mg b.i.d. 4. Synthroid 88 mcg daily. CONDITION: Stable. PROGNOSIS: Guarded. DISCHARGE DIAGNOSES: 1. Chronic obstructive pulmonary disease. 2. Nicotine addiction. 3. Multiple lacunar strokes, otic septal stroke seen on MRI. Patient came to the hospital, had PT, OT rehab, started on aspirin, increased Norvasc, nicotine cessation patches, and so she had a left occipital lobe consistent with old cortical infarct. She has had multiple lacunar infarcts in the periventricular white matter and demyelinating disease. Evidence of acute lacune infarct, left posterior internal capsule. The patient got PT, OT. She will continue this at [facility] under Dr. Muniz's care. Continue medication modifications. Smoking cessation, medicine compliance, PT, OT for dysarthria and dizziness and balance walking and right arm weakness and dysmetria. MMODL / IJN: [id number] /
[2019-11-05 09:16] VITALS: BMI 18.3
--- NOTE | 2019-11-05 09:31 | P.DS ---
Providers Date of admission: 11/02/19 17:44 Expected date of discharge: 11/05/19 Attending physician: Anant Arec Consults: 11/02/19 17:45 Consult Physician Routine Consulting Provider: [place] Consult Reason/Comments: CVA Do you want consulting provider notified?: Yes 11/04/19 10:22 Consult Physician Routine Consulting Provider: Darius Muniz Consult Reason/Comments: [facility] rehab Do you want consulting provider notified?: Yes Primary care physician: Anant Arce [facility] Course: FInal Diagnoses: Hospital COurse:This is an 84-year-old female admitted with acute CVA, possible subacute left pontine infarct, hypertension, ongoing nicotine dependence and multiple other medical issues. Evaluated by neurology, neuro workup in progress. Brain MRI reported cerebral atrophy, old left occipital lobe cortical infarct, extensive chronic small vessel ischemia with multiple lacunar infarcts in the paraventricular white matter, demyelinating disease excluded, evidence of an acute back and upper infarct left posterior internal capsule. Maintained on aspirin, statin. Evaluated by PT/OT recommending subacute rehab. Participate with speech therapy. Denies chest pain, palpitations or increasing shortness of breath. Evaluated by Dr. Muniz, recommendations noted. EEG reported as normal.Please refer to Neurologist's PN for specifics. SIgnificant clinical improvement.Cleared by Neurology for Discharge. Patient being discharged to [facility] rehab, today in a stable condition with guarded prognosis.Patient to be on dual antiplatelet medication for 1 month, with aspirin and Plavix 75 mg, thereafter stay with monotherapy with aspirin.Continue Lipitor 20 mg daily.Complete tobacco cessation. EXAM: GENERAL: alert and oriented 3 ,no acute distress HEENT: Conjunctivae normal. eyes normal. Tongue midline NECK: No JVD. No thyroid enlargement. No LNs CARDIOVASCULAR: S1, S2 regular.. No murmur RESPIRATION: Breath sounds diminished in the bases. No rhonchi or crackles. No bronchial breathing. ABDOMEN: Soft, nontender . No guarding. no masses palpable. Bowel sounds heard. LEGS: No edema. no swelling NERVOUS SYSTEM: Minimal dysarthria, Right arm weakness, right income tax manager almost equal. Bilateral lower extremity strength normal/equal. Sensation intact. Acute CVA with mild dysarthria, gait dysfunction, imbalance CT reporting possible subacute left pontine infarct. MRI reports evidence of an acute lacunar infarct left posterior internal capsule. Chronic left occipital lobe cortical infarct, extensive chronic small vessel ischemia with multiple lacunar infarcts in the paraventricular white matter. Right visual field deficit, likely related to chronic left occipital lobe infarct, although patient denies any history of CVA. Possible demyelinating disease. Nicotine dependence Accelerated hypertension The impression and plan of care has been dictated as directed. : I performed a history and examination of this patient, discussed the same with the dictator. I agree with the dictator's note ,documented as a scribe. Any additional findings or plans will be noted. Patient Condition at Discharge: Stable Plan - Discharge Summary Discharge Rx Participant: No New Discharge Prescriptions: New Aspirin 325 mg PO DAILY tab Atorvastatin [Lipitor] 40 mg PO DAILY tab amLODIPine [Norvasc] 5 mg PO BID tab Clopidogrel [Plavix] 75 mg PO DAILY tab Continue Levothyroxine Sodium [Synthroid] 88 mcg PO DAILY Discontinued amLODIPine [Norvasc] 5 mg PO DAILY Discharge Medication List Levothyroxine Sodium [Synthroid] 88 mcg PO DAILY 09/08/19 [History] Aspirin 325 mg PO DAILY tab 11/05/19 [Rx] Atorvastatin [Lipitor] 40 mg PO DAILY tab 11/05/19 [Rx] Clopidogrel [Plavix] 75 mg PO DAILY tab 11/05/19 [Rx] amLODIPine [Norvasc] 5 mg PO BID tab 11/05/19 [Rx] Follow up Appointment(s)/Referral(s): Anant Arce MD [Primary Care Provider] - 3 Days (Please follow up with your primary provider after being discharged from [facility].) Patient Instructions/Handouts: How to Stop Smoking (DC), Ischemic Stroke (DC)
[2019-11-05 10:35] VITALS: BP 189/79; PULSE 56; TEMP 98.2
[2019-11-05 16:51] LABS: Hemoglobin A1C 5.3 % (4.0-6.0)
== END 2019-11-05 16:18 | DRG 65 ==
LOC: EC 16:17 → 3SCARD 17:44
PROVIDERS: ADMIT Family Medicine; ATTEND Family Medicine
DX: I63.81 Other cerebral infarction due to occlusion or stenosis of small artery (principal); G81.91 Hemiplegia, unspecified affecting right dominant side; G37.9 Demyelinating disease of central nervous system, unspecified; R47.1 Dysarthria and anarthria; R29.702 NIHSS score 2; E03.9 Hypothyroidism, unspecified; F17.210 Nicotine dependence, cigarettes, uncomplicated; I10 Essential (primary) hypertension; I44.0 Atrioventricular block, first degree; I49.1 Atrial premature depolarization; I73.9 Peripheral vascular disease, unspecified; J44.9 Chronic obstructive pulmonary disease, unspecified; H40.9 Unspecified glaucoma; R26.81 Unsteadiness on feet; I69.398 Other sequelae of cerebral infarction; H53.40 Unspecified visual field defects; T46.1X6A Underdosing of calcium-channel blockers, initial encounter; T38.1X6A Underdosing of thyroid hormones and substitutes, initial encounter; Z91.128 Patient's intentional underdosing of medication regimen for other reason; Z79.890 Hormone replacement therapy; Z79.899 Other long term (current) drug therapy; Z90.49 Acquired absence of other specified parts of digestive tract; Z98.42 Cataract extraction status, left eye; Z98.41 Cataract extraction status, right eye; Z96.1 Presence of intraocular lens
CPT/HCPCS: 36415; 70450; 70496; 70498; 70551; 71046; 71250; 80053; 80061; 83036; 84484; 85025; 85610; 85730; 93005; 93306; 95816; 99285

== ENCOUNTER 2020-04-28 13:36 | Observation (INO) | payer MEDICARE ==
[2020-04-28 17:29] LABS: Basophils # (A) 0.1 k/uL (0-0.2); Basophils % (A) 1 %; Eosinophils # (A) 0.1 k/uL (0-0.7); Eosinophils % (A) 1 %; HCT 41.3 % (34.0-46.0); HGB 13.1 gm/dL (11.4-16.0); Lymphocytes # (A) 1.4 k/uL (1.0-4.8); Lymphocytes % (A) 20 %; MCH 30.1 pg (25.0-35.0); MCHC 31.7 g/dL (31.0-37.0); MCV 95.1 fL (80.0-100.0); Mean Platelet Volume 6.8; Monocytes # (A) 0.4 k/uL (0-1.0); Monocytes % (A) 5 %; Neutrophils # (A) 4.8 k/uL (1.3-7.7); Neutrophils % (A) 70 %; Platelet Count 186 k/uL (150-450); RBC 4.34 m/uL (3.80-5.40); RDW 14.2 % (11.5-15.5); WBC 6.9 k/uL (3.8-10.6)
[2020-04-28 17:38] LABS: Albumin 4.1 g/dL (3.5-5.0); Calcium 9.5 mg/dL (8.4-10.2); Potassium 4.3 mmol/L (3.5-5.1); Total Bilirubin 0.5 mg/dL (0.2-1.3); Total Protein 6.9 g/dL (6.3-8.2)
[2020-04-28] MEDS: SODIUM CHLORIDE 0.9% 1,000 ML IV SCH (17:59)
--- NOTE | 2020-04-28 18:24 | XR ---
EXAMINATION TYPE: XR chest 2V DATE OF EXAM: 04/28/2020 COMPARISON: 11/02/2019 HISTORY: Right-sided weakness TECHNIQUE: 2 views FINDINGS: There is pulmonary hyperinflation with flattening of the diaphragm. Thoracic aorta is ather omatous. There is no pleural effusion. Bony thorax is intact. There are chest leads. There is 25% ant erior wedging of L1 vertebra unchanged. There is mild pleural thickening at the lung apices. IMPRESSION: There is probably COPD. Mild scarring at the lung apices. No acute lung disease. No veras e compared to old exam. No heart failure.
[2020-04-28 19:53] LABS: Appearance,Urine Clear (Clear); Bilirubin,Urine Negative (Negative); Blood,Urine Negative (Negative); Color,Urine Colorless; Glucose,Urine (UA) Negative (Negative); Ketones,Urine Negative (Negative); Leukocyte Esterase,Urine Negative (Negative); Nitrite,Urine Negative (Negative); PH, Urine 7.5 (5.0-8.0); Protein,Urine Negative (Negative); Specific Gravity,Urine 1.007 (1.001-1.035); Urobilinogen,Urine <2.0 mg/dL (<2.0)
[2020-04-28] MEDS: amLODIPine 5 MG TAB PO SCH (20:11)
[2020-04-29] MEDS ORDERED: LEVOTHYROXINE 88 MCG TAB PO SCH (06:30)
[2020-04-29] MEDS: amLODIPine 5 MG TAB PO SCH (07:19)
[2020-04-29] MEDS ORDERED: ASPIRIN 325 MG TAB PO SCH (09:00)
[2020-04-29] MEDS ORDERED: ATORVASTATIN 40 MG TAB PO SCH (09:00)
[2020-04-29 10:32] VITALS: BMI 19.6
[2020-04-29 10:42] LABS: Basophils # (A) 0.1 k/uL (0-0.2); Basophils % (A) 1 %; Eosinophils # (A) 0.2 k/uL (0-0.7); Eosinophils % (A) 3 %; HCT 40.5 % (34.0-46.0); HGB 12.9 gm/dL (11.4-16.0); Lymphocytes # (A) 1.5 k/uL (1.0-4.8); Lymphocytes % (A) 22 %; MCH 29.9 pg (25.0-35.0); MCHC 31.8 g/dL (31.0-37.0); Monocytes # (A) 0.5 k/uL (0-1.0); Monocytes % (A) 7 %; Neutrophils # (A) 4.4 k/uL (1.3-7.7); Neutrophils % (A) 64 %; Platelet Count 188 k/uL (150-450); RBC 4.31 m/uL (3.80-5.40); RDW 14.3 % (11.5-15.5); WBC 6.9 k/uL (3.8-10.6)
[2020-04-29 10:51] LABS: Potassium 4.1 mmol/L (3.5-5.1)
[2020-04-29 10:52] LABS: Albumin 3.9 g/dL (3.5-5.0); Calcium 9.1 mg/dL (8.4-10.2); Total Bilirubin 0.6 mg/dL (0.2-1.3); Total Protein 6.5 g/dL (6.3-8.2)
[2020-04-29] MEDS: SODIUM CHLORIDE 0.9% 1,000 ML IV SCH (11:56)
[2020-04-29 12:46] LABS: T4, Free (Free Thyroxine) 2.16 ng/dL (0.78-2.19)
[2020-04-29] MEDS ORDERED: RX INFO: IV CONTRAST WAS GIVEN 1 EACH MISC MISCELLANE PRN (12:51)
--- NOTE | 2020-04-29 13:33 | P.CRDCN ---
History of Present Illness History of present illness: HISTORY OF PRESENTING ILLNESS This is a pleasant 84-year-old female past medical history significant for COPD, hypertension, hypothyroidism, chronic nicotine dependence and dyslipi demia. She denies prior history coronary artery disease and does not follow with a linux server administrator. We have been asked to see in consultation for syncope. She states yesterday she was standing at the table doing a puzzle with her grandsons. She had been standing for approximately 30 minutes. All she can recall is she took a step backwards and fell. She apparently hit her head and is unsure about LOC. She doesn't remember feeling dizzy or light headed prior to falling. She had no chest pain, shortness of breath, palpitations, diaphoresis, nausea or vomiting. She said her grandson told her she did pass out. She is seen and examined sitting up in the chair in no acute distress. She was sent in as a direct admit from her primary care physician's office. Orthostatic vital signs unremarkable. She also states she was asymptomatic at that time. There is no EKG obtained on admission. Chest x-ray reveals underlying COPD. Telemetry tracings have been unremarkable for an acute tachycardia or bradycardia arrhythmia. Laboratory data reviewed, CBC unremarkable, sodium 138, potassium 4.3, creatinine 0.75, cardiac enzymes negative 1, TSH 0.1. Chronic daily medications include amlodipine 5 mg twice a day, Synthroid, atorvastatin 40 mg daily and aspirin 325 mg daily. In October 2019 she underwent an echocardiogram revealing preserved LV systolic function with ejection fraction 55%, mild aortic regurgitation, mild mitral regurgitation and mild tricuspid regurgitation. REVIEW OF SYSTEMS At the time of my exam: CONSTITUTIONAL: Denies fever or chills. CARDIOVASCULAR: Denies chest pain, shortness of breath, orthopnea, PND or palpitations. RESPIRATORY: Denies cough. GASTROINTESTINAL: Denies abdominal pain, diarrhea, constipation, nausea or vomiting. MUSCULOSKELETAL: Denies myalgias. NEUROLOGIC: Denies numbness, tingling or weakness. ENDOCRINE: Denies fatigue, weight change, polydipsia or polyurina. GENITOURINARY: Denies burning, hematuria or urgency with micturation. HEMATOLOGIC: Denies history of anemia or bleeding. PHYSICAL EXAMINATION Blood pressure 141/73 heart rate 72 afebrile and maintaining oxygen saturation on room air. CONSTITUTIONAL: No apparent distress. Frail. HEENT: Head is normocephalic. Pupils are equal, round. Sclerae anicteric. Mucous membranes of the mouth are moist. No JVD. No carotid bruit. CHEST EXAMINATION: Course with no wheezes, rales or rhonchi noted. No chest wall tenderness is noted on palpation or with deep breathing. HEART EXAMINATION: Regular rate and rhythm. S1, S2 heard. No murmurs, gallops or rub. ABDOMEN: Soft, nontender. Positive bowel sounds. EXTREMITIES: 2+ peripheral pulses, no lower extremity edema and no calf tenderness. NEUROLOGIC EXAMINATION: Patient is awake, alert and oriented x3. ASSESSMENT Fall unclear if there is actual syncope. Possibly mechanical fall. COPD Hypertension Dyslipidemia Chronic nicotine dependence PLAN Obtain baseline EKG. Check d-dimer and second troponin to rule out an acute coronary event. Obtain 2-D echocardiogram and Doppler study to assess cardiac structure and function. Ongoing telemetry monitoring. Neurology is also following. Thank you kindly for this consultation. Nurse Practitioner note has been reviewed, I agree with a documented findings and plan of care. Patient was seen and examined. Past Medical History Past Medical History: Eye Disorder, Hypertension, Thyroid Disorder Additional Past Medical History / Comment(s): Bilateral glaucoma, lower leg edema at times, hypothyroid, 2017 possible TIA/bradycardia, stress urine incontinence. History of Any Multi-Drug Resistant Organisms: None Reported Past Surgical History: Appendectomy, Hernia Repair Additional Past Surgical History / Comment(s): R inguinal hernia repair, duncan ateral cataract removals Past Anesthesia/Blood Transfusion Reactions: No Reported Reaction Past Psychological History: No Psychological Hx Reported Additional Psychological History / Comment(s): Pt resides alone. She owns a cane which she uses prn. She no longer drives, her sachin takes her to appts. No home care. She manages her own medications and prepares her own meals. Smoking Status: Current every day smoker Past Alcohol Use History: None Reported Additional Past Alcohol Use History / Comment(s): Pt started smoking in 1953 and is a 1/5 ppd smoker. Past Drug Use History: None Reported - Past Family History Father Family Medical History: No Reported History Additional Family Medical History / Comment(s): Father was healthy and at the age of 94 yrs. Mother Family Medical History: No Reported History Additional Family Medical History / Comment(s): Mother was healthy and at the age of 95 yrs. Medications and Allergies Home Medications Medication Instructions Recorded Confirmed Type Levothyroxine Sodium [Synthroid] 88 mcg PO DAILY 09/08/19 04/28/20 History Aspirin 325 mg PO DAILY tab 11/05/19 04/28/20 Rx Atorvastatin [Lipitor] 40 mg PO DAILY tab 11/05/19 04/28/20 Rx amLODIPine [Norvasc] 5 mg PO BID tab 11/05/19 04/28/20 Rx Allergies Allergy/AdvReac Type Severity Reaction Status Date / Time No Known Allergies Allergy Verified 04/28/20 15:37 Physical Exam Vitals: Vital Signs Temp Pulse Pulse Pulse Pulse Resp BP 04/29/20 07:00 98.4 F 72 18 04/29/20 03:05 97.7 F 74 16 04/28/20 23:13 97.8 F 87 71 98 18 04/28/20 19:15 97.8 F 68 16 173/79 04/28/20 16:00 20 04/28/20 14:30 97.9 F 67 19 152/65 BP BP BP Pulse Ox 04/29/20 07:00 141/73 94 L 04/29/20 03:05 144/70 93 L 04/28/20 23:13 124/73 115/73 152/93 04/28/20 19:15 96 04/28/20 16:00 04/28/20 14:30 97 Intake and Output 04/28/20 04/29/20 04/29/20 22:59 06:59 14:59 Intake Total 150 Balance 150 Intake: Intake, IV Titration 150 Amount Sodium Chloride 0.9% 1, 150 000 ml @ 50 mls/hr IV . Q20H [facility] Rx#:[id number] Other: # Voids 3 1 1 Weight 48.716 kg Results 04/29/20 10:07 04/29/20 10:07 Cardiac Enzymes 04/28/20 04/28/20 Range/Units 17:04 17:04 AST 38 H (14-36) U/L Troponin I <0.012 (0.000-0.034) ng/mL CBC 04/28/20 Range/Units 17:04 WBC 6.9 (3.8-10.6) k/uL RBC 4.34 (3.80-5.40) m/uL Hgb 13.1 (11.4-16.0) gm/dL Hct 41.3 (34.0-46.0) % Plt Count 186 (150-450) k/uL Comprehensive Metabolic Panel 04/28/20 Range/Units 17:04 Sodium 138 (137-145) mmol/L Potassium 4.3 (3.5-5.1) mmol/L Chloride 105 (98-107) mmol/L Carbon Dioxide 26 (22-30) mmol/L BUN 17 (7-17) mg/dL Creatinine 0.75 (0.52-1.04) mg/dL Glucose 86 (74-99) mg/dL Calcium 9.5 (8.4-10.2) mg/dL AST 38 H (14-36) U/L ALT 36 H (4-34) U/L Alkaline Phosphatase 143 H (38-126) U/L Total Protein 6.9 (6.3-8.2) g/dL Albumin 4.1 (3.5-5.0) g/dL Current Medications Generic Name Dose Route Start Last Admin Trade Name Suha PRN Reason Stop Dose Admin Amlodipine Besylate 5 mg 04/28/20 21:00 04/29/20 07:19 Norvasc PO 5 mg BID QUETA Administration Aspirin 325 mg 04/29/20 09:00 04/29/20 07:19 Aspirin PO 325 mg DAILY QUETA Administration Atorvastatin Calcium 40 mg 04/29/20 09:00 04/29/20 07:19 Lipitor PO 40 mg DAILY QUETA Administration Sodium Chloride 1,000 mls @ 50 mls/hr 04/28/20 17:00 04/28/20 17:59 Saline 0.9% IV 50 mls/hr .Q20H QUETA Administration Levothyroxine Sodium 88 mcg 04/29/20 06:30 04/29/20 05:30 Synthroid PO 88 mcg 0630 QUETA Administration Intake and Output 04/28/20 04/29/20 04/29/20 22:59 06:59 14:59 Intake Total 150 Balance 150 Intake: Intake, IV Titration 150 Amount Sodium Chloride 0.9% 1, 150 000 ml @ 50 mls/hr IV . Q20H QUETA Rx#:[id number] Other: # Voids 3 1 1 Weight 48.716 kg 04/28/20 17:04 04/28/20 17:04
--- NOTE | 2020-04-29 14:05 | HP ---
HISTORY AND PHYSICAL An 84-year-old white female, came in after having a syncopal episode at home. She was standing up trying to put a puzzle together at which time she just collapsed to the ground. She was admitted for monitoring for arrhythmias and to rule out any cause for the syncope. She has history of multiple strokes in the past. Her TSH is 0.227. TSH for HDL is 65. Her free T4 is 216. D-dimer is 0.68, a little high. 14-POINT REVIEW OF SYSTEMS: Otherwise negative. Chest x-ray shows some COPD. MEDICATIONS: See list. PHYSICAL EXAMINATION: She is 94% on room air. Temperature 98.4, blood pressure 140s/70s, heart rate 70 to 72, respiratory rate 16 to 18. CARDIOVASCULAR: S1-S2. LUNGS: Decreased breath sounds x4. PSYCH: Fair mood and affect. NEUROLOGIC: Alert and oriented x3. OPHTHALMOLOGIC: Pupils equal, round, reactive. Blood pressure is 140s/70s. ASSESSMENT: Syncope, elevated D-dimer. Will do a CT of the chest to rule out PE. Monitor for arrhythmias on the monitor. If cleared with a negative CTA and Neurology does not see here or Cardiology does not see her, I will probably send her home if CT has cleared and if there is no arrhythmias on the monitor. MMODL / IJN: [id number] /
[2020-04-29 14:48] VITALS: BP 132/67; PULSE 61; RESP 17; TEMP 98
--- NOTE | 2020-04-29 18:00 | ECHOF ---
Referral Reason:syncope MEASUREMENTS -------- HEIGHT: 170.2 cm WEIGHT: 49.0 kg BP: RVIDd: 2.8 cm (< 3.3) IVSd: 1.0 cm (0.6 - 1.1) LVIDd: 3.6 cm (3.9 - 5.3) LVPWd: 1.0 cm (0.6 - 1.1) EDV(Teich): 55 ml IVSs: 1.3 cm LVIDs: 2.6 cm LVPWs: 1.4 cm %IVS Thck: 33 % ESV(Teich): 24 ml EF(Teich): 57 % %FS: 29 % SV(Teich): 32 ml LA Diam: 4.1 cm (2.7 - 3.8) Ao Diam: 2.3 cm (2.0 - 3.7) AV Cusp: 1.5 cm (1.5 - 2.6) LA Diam: 3.9 cm (2.7 - 3.8) MV EXCURSION: 11.844 mm (> 18.000) MV EF SLOPE: 35 mm/s (70 - 150) EPSS: 0.6 cm MV E Franki: 0.60 m/s MV DecT: 280 ms MV Dec Davidson: 2.2 m/s MV A Franki: 0.67 m/s MV E/A Ratio: 0.90 MV PHT: 81 ms TR Vmax: 2.73 m/s TR maxP.72 mmHg RAP: 5.00 mmHg RVSP: 34.72 mmHg FINDINGS -------- Sinus rhythm. This was a technically good study. LV size, wall thickness and systolic function are normal, with an EF greater than 55%. The left kathryn tricular size is normal. The right ventricle is normal in size. The left atrium is mildly dilated. The right atrial size is normal. There is mild aortic valve sclerosis. Mild mitral annular calcification present. Mild mitral regurgitation is present. Mild tricuspid regurgitation present. Right ventricular systolic pressure is normal at < 35 mmHg. There is no pulmonic regurgitation present. The aortic root size is normal. There is no pericardial effusion. CONCLUSIONS -------- 1. LV size, wall thickness and systolic function are normal, with an EF greater than 55%. 2. The left ventricular size is normal. 3. The left atrium is mildly dilated. 4. There is mild aortic valve sclerosis. 5. Mild mitral regurgitation is present. 6. Mild tricuspid regurgitation present. 7. There is no pericardial effusion. MDM DEVELOPER: Deborah Vargas RDCS
[2020-04-29 18:13] LABS: Hemoglobin A1C 5.8 % (4.0-6.0)
--- NOTE | 2020-04-29 21:53 | P.CNNES ---
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 Arce office for an episode of syncope. Per the patient's he says around 2 PM she was in the kitchen with her grandson and she was on her feet for 30 minutes and all of a sudden she passed out loss consciousness. She was told that she lost consciousness for about 3 minutes and the regained it immediately afterwards. She denies any jerking episodes of any of her extremities any of the eyes rolling back to that she was notified she denies a having any urinary bowel incontinence. She denies any warning signs prior to this episode. She denies of any chest pain any flushing and she denies feeling lightheaded and dizzy. She denies of any previous episodes like this in the past. He denies any fever, or feeling sick recently. Patient was told that she was dehydrated. Again patient denied any history of seizures or passing out. No childhood seizures. No family history of seizure. She was a product of normal history according to her and no complications. Upon presentation to the hospital the patient's vitals were blood pressure 152/65, respirations 19, pulse is 67, temperature of 97.9 oral, pulse ox 97 at room air. Patient had orthostatic vitals: Supine 152/93 with heart rate 98. Sitting 124/73 with heart rate 87. Standing 115/73 with heart rate 71. She was seen by the neurology team at [facility] on 11-03 for consult for stroke for dysarthria and right hand weakness. MRI of the brain was ordered and was reported there is as evidence of acute lacunar infarct in the left posterior internal capsule. It shows an old left occipital cortical infarct. There is extensive chronic small vessel ischemia with multiple lacunar infarct in the periventricular white matter.Patient had an EEG on 11-04 and it was the reported as normal. Patient was discharged on dual antiplatelets for 21 days then the recommended monotherapy with the aspirin. And to continue Lipitor 20 mg. Patient states that she is on aspirin 325mg and Lipitor 20 mg daily. She is not on Plavix. She continues to smoke half a pack a day for more than 4 years. That she is following up of with Dr. Arce. She's not following up with a neurologist. I attempted to contact the patient daughter via phone to verify the story but no response. Review of Systems Review of system: The 12 point system was reviewed and apparent positive and negative per HPI. Past Medical History Past Medical History: Eye Disorder, Hypertension, Thyroid Disorder Additional Past Medical History / Comment(s): Bilateral glaucoma, lower leg edema at times, hypothyroid, 2017 possible TIA/bradycardia, stress urine incontinence. History of Any Multi-Drug Resistant Organisms: None Reported Past Surgical History: Appendectomy, Hernia Repair Additional Past Surgical History / Comment(s): R inguinal hernia repair, bilateral cataract removals Past Anesthesia/Blood Transfusion Reactions: No Reported Reaction Past Psychological History: No Psychological Hx Reported Additional Psychological History / Comment(s): Pt resides alone. She owns a cane which she uses prn. She no longer drives, her sachin takes her to appts. No home care. She manages her own medications and prepares her own meals. Smoking Status: Current every day smoker Past Alcohol Use History: None Reported Additional Past Alcohol Use History / Comment(s): Pt started smoking in 1953 and is a 1/5 ppd smoker. Past Drug Use History: None Reported - Past Family History Father Family Medical History: No Reported History Additional Family Medical History / Comment(s): Father was healthy and at the age of 94 yrs. Mother Family Medical History: No Reported History Additional Family Medical History / Comment(s): Mother was healthy and at the age of 95 yrs. Medications and Allergies Home Medications Medication Instructions Recorded Confirmed Type Levothyroxine Sodium [Synthroid] 88 mcg PO DAILY 09/08/19 04/28/20 History Aspirin 325 mg PO DAILY tab 11/05/19 04/28/20 Rx Atorvastatin [Lipitor] 40 mg PO DAILY tab 11/05/19 04/28/20 Rx amLODIPine [Norvasc] 5 mg PO BID tab 11/05/19 04/28/20 Rx Allergies Allergy/AdvReac Type Severity Reaction Status Date / Time No Known Allergies Allergy Verified 04/28/20 15:37 Physical Examination - Vital Signs Vital Signs: Vital Signs Temp Pulse Pulse Pulse Pulse Resp BP 04/29/20 07:00 98.4 F 72 18 04/29/20 03:05 97.7 F 74 16 04/28/20 23:13 97.8 F 87 71 98 18 04/28/20 19:15 97.8 F 68 16 173/79 04/28/20 16:00 20 04/28/20 14:30 97.9 F 67 19 152/65 BP BP BP Pulse Ox 04/29/20 07:00 141/73 94 L 04/29/20 03:05 144/70 93 L 04/28/20 23:13 124/73 115/73 152/93 04/28/20 19:15 96 04/28/20 16:00 04/28/20 14:30 97 Intake and Output 04/28/20 04/29/20 04/29/20 22:59 06:59 14:59 Intake Total 150 Balance 150 Intake: Intake, IV Titration 150 Amount Sodium Chloride 0.9% 1, 150 000 ml @ 50 mls/hr IV . [facility] Rx#:[id number] Other: # Voids 3 1 1 Weight 48.716 kg 48.716 kg GENERAL: The patient is lying in bed and is not in acute distress. CHEST: The heart rate is regular rate rhythm. No murmurs to auscultation. LUNG: Clear to auscultation bilaterally no wheezing noted throughout. Not labored breathing. ABDOMEN/GI: Bowel sounds present in all 4 quadrants. No tenderness to palpation throughout. NEUROLOGICAL: Higher mental function: The patient is awake, alert, oriented to self, place and time. Patient is following commands. No aphasia and no neglect. Cranial nerves: The pupils are round, equal and reactive to light and accommodation. Visual english: right field cut to confrontation throughout. Extraocular movement is intact no nystagmus is noted. Facial sensation is normal to touch throughout. The facial strength is normal throughout. Hearing is normal bilaterally to hand rub. Tongue is midline and moved [id number] wi thout any difficulty. No dysarthria is noted. Shoulder shrug is normal bilaterally. Motor: Gait is defered. The strength is 5 over 5 throughout. Normal tone and bulk. Cerebellum: Normal finger to nose heel to chin bilaterally. Sensation: Sensation is normal to touch throughout. Reflexes (right/left): 2+ throughout except at ankles are 1+ bilaterally Plantars are downgoing bilaterally. Results AST 38, ALTs 36, TSH is 0.10 which is low. Albumin is 4.1. His UA was negative for infection - Laboratory Findings CBC and BMP: 04/29/20 10:07 04/29/20 10:07 Abnormal Lab Findings: Abnormal Labs 04/28/20 17:04 AST 38 H ALT 36 H Alkaline Phosphatase 143 H TSH 0.100 L Assessment and Plan Assessment: Ms. 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 Arce office for an episode of syncope on 04/28/20. She said it happened at 2pm while standing in kitchen and passed out for 3 minutes. She denies any jerking episodes, urinary or bowel incontinence. Denies any warning episode prior episode. She was told she was dehydrate. Syncopal episode: Unlikely seizure. Orthostatic hypotension was positive. She was told she was dehydrate. Orthostatic vitals looks positive. Hx of Left occipital stroke s/p right visual field deficit Hypertension Hypothyroidism Chronic tobacco use Plan: -Regarding her syncope the primary team ordered an EEG and it's pending. Unlikely it is a seizure. If she EEG shows seizure activity then will start patient on Anti-epileptic medication. -Orthostatic seems positive for orthostatic hypotension. Recommends repeated it again to verify. If inconclusive recommend getting a tilt table test. -Currently primary team ordered MRI of the brain. -2-D echo is pending -The patient was placed on aspirin 325, Lipitor 40 mg for secondary stroke prophylaxis. Patient was counseled on tobacco cessation Cardiology is consulted and appreciated the recommendations. We'll defer management of hypertension, hypothyroidism to the primary team Thank you for the consult. Amari Tellez M.D. Neuro-hospitalist Time with Patient: Greater than 30
== END 2020-04-29 15:45 | disposition home or self-care (01) ==
LOC: 4SSUR 14:13
PROVIDERS: ADMIT Family Medicine; ATTEND Family Medicine
DX: I95.1 Orthostatic hypotension (principal); E86.0 Dehydration; R79.1 Abnormal coagulation profile; I69.398 Other sequelae of cerebral infarction; H53.40 Unspecified visual field defects; I10 Essential (primary) hypertension; E03.9 Hypothyroidism, unspecified; H40.9 Unspecified glaucoma; N39.3 Stress incontinence (female) (male); I08.3 Combined rheumatic disorders of mitral, aortic and tricuspid valves; J44.9 Chronic obstructive pulmonary disease, unspecified; E78.5 Hyperlipidemia, unspecified; F17.210 Nicotine dependence, cigarettes, uncomplicated; Z79.82 Long term (current) use of aspirin; Z79.899 Other long term (current) drug therapy; Z79.890 Hormone replacement therapy; Z90.49 Acquired absence of other specified parts of digestive tract; Z98.890 Other specified postprocedural states; Z98.41 Cataract extraction status, right eye; Z98.42 Cataract extraction status, left eye
CPT/HCPCS: 93306; 93005; 85379; 84439; 80053 ×2; 80061; 84443 ×2; 84484 ×2; 85025 ×2; 81003; 83036; 71046; G0378 ×2; G0379

== ENCOUNTER → 2022-05-01 | Outpatient (CLI) | payer MEDICARE ==
--- NOTE | 2022-05-01 14:37 | XR ---
EXAMINATION TYPE: XR lumbosacral spine min 4V DATE OF EXAM: 05/01/2022 2:16 PM INDICATION: Patient age:Female; 86 years old; Reason for study: W19.XXXA Fall,Trauma. COMPARISON: 04/29/2015 TECHNIQUE: Frontal , bilateral oblique and lateral views of the lumbar spine. FINDINGS: There is multilevel endplate spurring displaced narrowing present. There is which compressi on deformity of T12 present. Which may be mildly progressed from 2015. There is atherosclerosis of th e arterial vasculature present. There is grade 1 anterolisthesis of L4 and L5 present. Stable back to 2014. IMPRESSION: 1. Progression of which wedge compression deformity of T12 when compared 2014. Correlate with point tenderness for acute injury. 2. Grade 1 anterolisthesis of L4 on L5 which is similar to 2015.
== END | disposition home or self-care (01) ==
LOC: RADXRMAIN 13:49
PROVIDERS: ATTEND Family Medicine
DX: M48.54XA Collapsed vertebra, not elsewhere classified, thoracic region, initial encounter for fracture (principal); W19.XXXA Unspecified fall, initial encounter
CPT/HCPCS: 72110